=== PATIENT | female | born 1960 | race Caucasian/White ===

== ENCOUNTER 2018-01-21 06:11 | Day surgery (SDC) | payer BC, SELFPAY ==
[2018-01-21 06:26] VITALS: BP 137/86; PULSE 76; RESP 18; TEMP 36.5; O2SAT 99
[2018-01-21] MEDS: Lactated Ringers 1,000 ML 80 ML IV (06:58)
[2018-01-21] MEDS: Lidocaine 1% Pres-Free 5 ML VIAL (07:45)
[2018-01-21] MEDS: Dexamethasone 4 MG/ML VIAL (08:01)
--- NOTE | 2018-01-21 08:38 | W.PM.DSUDISC ---
Discharge Plan Disposition Patient Disposition: HOME Condition: Good Discharge Details Attending Provider: Bulmaro Haney Primary Care Provider: Jazz Horner Home Meds and New Rx's Prescriptions: New hydrocodone-acetaminophen [[place]] 5-325 mg tablet 1 tab PO Q6H PRN (Reason: pain) Qty: 7 RF: 0 ibuprofen 600 mg tablet 600 mg PO QID PRN (Reason: pain and inflamation) Qty: 30 RF: 0 No Action magnesium 250 MG tablet 250 mg PO DAILY RF: 0 multivit with min-folic acid [Women's Multivitamin Gummies] 200 MCG tablet,chewable 2 tab PO DAILY RF: 0 lisinopril 20 MG tablet 20 mg PO DAILY Qty: 90 RF: 4 diclofenac sodium 100 GM gel 2 - 4 gm Topical QID PRNQty: 1 RF: 2 omega-3 fatty acids [Fish Oil] 300 MG capsule 300 mg PO DAILY PRNRF: 0 Discharge Instructions Stand Alone Forms: Judah Instructions-DSU Discharge Orders Discharge Orders: Discharge Order (Routine); Ordered 01/21/18 Ordered By: Bulmaro Haney DS: Diagnosis Discharge Diagnosis (1) Plantar fasciitis of left foot: Status: Acute
[2018-01-21 08:50] VITALS: BP 116/81; PULSE 71; RESP 16; O2SAT 99
--- NOTE | 2018-01-21 10:00 | ROE_ITS ---
REPORT OF OPERATIVE PROCEDURE DATE OF PROCEDURE January 21, 2018 PREOPERATIVE DIAGNOSES Recalcitrant left plantar fasciitis. POSTOPERATIVE DIAGNOSES Recalcitrant left plantar fasciitis. PROCEDURE Endoscopic plantar fasciotomy, left foot. SURGEON Bulmaro Haney DPM. ANESTHESIA Monitored Anesthesia Care. Also utilizing 20 cc of 50:50 mixture 0.5% ropivacaine and 1% lidocaine plain. ANESTHESIA PROVIDER Aditya Carlisle CRNA OPERATIVE INDICATIONS This 57-year-old female with persistent pain in spite of aggressive palliative treatments left planta r fascitis for endoscopic plantar fasciotomy in an effort to reduce pain and improve function. She un derstands the risks and complications of surgery pertaining to pain, scarring, infection, wound dehis cence, persistent plantar fascial discomfort, lateral column pain, the potential for revisional proce dures. Informed consent has been obtained. No promises made to the final outcome of the surgery. DESCRIPTION OF REPORT OF OPERATION Aliza was brought to the Operative Suite, placed in the supine position, where the left foot was preppe d and draped in the usual sterile podiatric fashion. Anesthesia being obtained, the left foot was exs anguinated, and a well-padded ankle tourniquet inflated to 150 mmHg. Attention was directed to the me dial aspect of the left heel where a 1-cm incision was made approximately 50 mm in from the posterior calcaneus edge and approximately 25 mm up from the plantar surface of the foot. A curved hemostat wa s then used to identify the medial edge of the plantar fascia and a tunnel was created superficial to the fascia. The obturator and cannula were then inserted into the wound. It was pushed through plan tarly and exited laterally without difficulty. The scope was inserted laterally and the plantar fasci a was readily identified. A picture was obtained at this level. Utilizing the hook blade, the medial third of the plantar fascia was released without difficulty. A picture was also obtained at this poi nt revealing the exposed muscle belly under the fascia. The hook blade was then used to tease any add itional fibers. The scope was removed as was the blade and we entered from the medial side going late rally to inspect and no additional areas of uncut fascia identified. The scope was removed. Irrigatio n was performed in the usual fashion. Instrumentation was removed from the surgical incision. The la teral incision was closed with a single horizontal mattress suture #4-0 Nylon. The medial incision wa s closed by 1 horizontal mattress suture, 1 simple suture of #4-0 Nylon. 4 mg Dexamethasone phosphate was infused deeply within the wound. Fluff gauze compression dressings were applied. The tourniquet was released at 18 minutes with vascularity returning immediately to all toes. Aliza left the Operating Room with vital signs stable, vascular status intact. Sharp and sponge counts were correct. Note - Timeout had been conducted prior to incision and all in attendance were agreeable to patient, allergies, and procedure.
== END 2018-01-21 09:20 | disposition home or self-care (01) ==
PROVIDERS: PCP Family Medicine; Visit Provider Podiatrist
PROC: (CPT 29893; principal; 2018-01-21 07:30)
DX: M72.2 Plantar fascial fibromatosis (principal); I10 Essential (primary) hypertension
CPT/HCPCS: 29893; J0690; J1100; J2405

== ENCOUNTER 2018-04-20 12:16 | Emergency (ER) | payer BC, SELFPAY ==
--- NOTE | 2018-04-20 12:20 | W.ED.GENAD ---
Discharge Plan Disposition Patient Disposition: HOME Condition: Stable Discharge Details Chief Complaint: EyeProblem Clinical Impression: Contusion of skin Primary Care Provider: Naz Kelly ED Provider: Carlos Castillo Home Meds and New Rx's Prescriptions: Continued sertraline 100 mg tablet 100 mg PO DAILY Qty: 90 RF: 4 Discharge Instructions Additional Instructions: I suspect your area of discoloration is from coughing which led to a small area of bleeding If you have no improvement within a week see your e commerce merchant of primary care provider if you have severe eye pain, vision changes or fevers return to the emergency department Medical Decision Making 58 yo female comes in with bruising discoloration under the right eye since last night with no known trauma. Denies vision changes, pain, fevers. On exam she has skin contusion of the nasal inferior portion of the right periorbital region. There is no fluctuance warmth or tenderness on exam. Has 20/20 vision with glasses, PERRL, eomi without pain and normal conjunctiva. Pt has had a cough recently and I suspect she may have had a small area of cappilary hemorrhage leading to the bruising. No findings to suggest infection or cellulitis. She has no other bruising or other systemic symptoms to suggest bleeding disorder. No pain or trauma so doubt fx/dislocation and do not feel imaging indicated. Advised this should resolve in a week or so but if not she should f/u with pcp/e commerce merchant and return if worsening Differential Diagnosis sebaceous cyst, hordeolum, capillary hemorrhage HPI General Mode of arrival: ambulatory. Date/Time Provider Initiated Documentation: 04/20/18 12:18. Limitations to Documentation: no limitations. Information obtained by: patient. History of Present Illness 58 year old F presents to the emergency department with the chief complaint of bruising under right eye, described as mild, with intensity rated at 2. Patient started experiencing this day(s) (1) and it has been constant. No relieving factors improve symptom(s), No exacerbating factors reported . Patient did receive the following treatments prior to arrival, none Related Data Home Medications Medication Instructions Recorded Confirmed sertraline 100 mg tablet 100 mg PO DAILY #90 tab 02/13/18 04/20/18 Previous Rx's Medication Instructions Recorded sertraline 100 mg tablet 100 mg PO DAILY #90 tab 02/13/18 Allergies Allergy/AdvReac Type Severity Reaction Status Date / Time No Known Allergies Allergy Verified 04/20/18 12:25 Review of Systems Review of Systems All systems reviewed & are unremarkable except as noted in HPI and below Constitutional Denies chills, Denies fever(s) and Denies weakness Eyes Denies loss of vision ENT Denies change in voice Cardiovascular Denies chest pain and Denies dyspnea Respiratory Denies dyspnea Gastrointestinal Denies abdominal pain, Denies nausea and Denies vomiting Musculoskeletal Denies joint swelling Neurologic Denies loss of vision and Denies weakness [facility] Medical History Plantar fasciitis of left foot (Acute) Surgical History section Ligation of fallopian tube Family History Mother Neoplasm Father Neoplasm Sister No problems noted. Sister No problems noted. Brother No problems noted. Brother No problems noted. Daughter No problems noted. Daughter No problems noted. Social History Smoking/Tobacco Use Status: Never Exam Const General: no acute distress Orientation: alert HENMT Head: normal to inspection Ears: external ears normal General nose exam: external nose normal Mouth: moist mucous membranes Eyes General: appearance normal, both eyes and all related structures Neck Neck: normal visual inspection Resp Effort & Inspection: normal respiratory effort and able to speak in complete sentences Cardio Rate: regular rate Skin General skin exam: no rashes or lesions noted Neuro General: alert and oriented x3 Extrem General: normal to inspection Psych Mental Status: mental status grossly normal
[2018-04-20 12:21] VITALS: BP 140/80; PULSE 88; RESP 16; TEMP 37; O2SAT 96
--- NOTE | 2018-04-20 12:36 | ED.GENADUL_ITS ---
Discharge Plan Disposition Patient Disposition: HOME Condition: Stable Discharge Details Chief Complaint: EyeProblem Clinical Impression: Contusion of skin Primary Care Provider: Naz Kelly ED Provider: Carlos Castillo Home Meds and New Rx's Prescriptions: Continued sertraline 100 mg tablet 100 mg PO DAILY Qty: 90 RF: 4 Discharge Instructions Additional Instructions: I suspect your area of discoloration is from coughing which led to a small area of bleeding If you have no improvement within a week see your casino attendant of primary care provider if you have severe eye pain, vision changes or fevers return to the emergency department Medical Decision Making 58 yo female comes in with bruising discoloration under the right eye since last night with no known trauma. Denies vision changes, pain, fevers. On exam she has skin contusion of the nasal inferior portion of the right periorbital region. There is no fluctuance warmth or tenderness on exam. Has 20/20 vision with glasses, PERRL, eomi without pain and normal conjunctiva. Pt has had a cough recently and I suspect she may have had a small area of cappilary hemorrhage leading to the bruising. No findings to suggest infection or cellulitis. She has no other bruising or other systemic symptoms to suggest bleeding disorder. No pain or trauma so doubt fx/dislocation and do not feel imaging indicated. Advised this should resolve in a week or so but if not she should f/u with pcp/casino attendant and return if worsening Differential Diagnosis sebaceous cyst, hordeolum, capillary hemorrhage HPI General Mode of arrival: ambulatory . Date/Time Provider Initiated Documentation: 04/20/18 12:18 . Limitations to Documentation: no limitations . Information obtained by: patient . History of Present Illness 58 year old F presents to the emergency department with the chief complaint of bruising under right eye, described as mild, with intensity rated at 2. Patient started experiencing this day(s) (1) and it has been constant. No relieving factors improve symptom(s), No exacerbating factors reported . Patient did receive the following treatments prior to arrival, none Related Data Home Medications Medication Instructions Recorded Confirmed sertraline 100 mg tablet 100 mg PO DAILY #90 tab 02/13/18 04/20/18 Previous Rx's Medication Instructions Recorded sertraline 100 mg tablet 100 mg PO DAILY #90 tab 02/13/18 Allergies Allergy/AdvReac Type Severity Reaction Status Date / Time No Known Allergies Allergy Verified 04/20/18 12:25 Review of Systems Review of Systems All systems reviewed & are unremarkable except as noted in HPI and below Constitutional Denies chills, Denies fever(s) and Denies weakness Eyes Denies loss of vision ENT Denies change in voice Cardiovascular Denies chest pain and Denies dyspnea Respiratory Denies dyspnea Gastrointestinal Denies abdominal pain, Denies nausea and Denies vomiting Musculoskeletal Denies joint swelling Neurologic Denies loss of vision and Denies weakness [facility] Medical History Plantar fasciitis of left foot (Acute) Surgical History section Ligation of fallopian tube Family History Mother Neoplasm Father Neoplasm Sister No problems noted. Sister No problems noted. Brother No problems noted. Brother No problems noted. Daughter No problems noted. Daughter No problems noted. Social History Smoking/Tobacco Use Status: Never Exam Const General: no acute distress Orientation: alert HENMT Head: normal to inspection Ears: external ears normal General nose exam: external nose normal Mouth: moist mucous membranes Eyes General: appearance normal, both eyes and all related structures Neck Neck: normal visual inspection Resp Effort & Inspection: normal respiratory effort and able to speak in complete sentences Cardio Rate: regular rate Skin General skin exam: no rashes or lesions noted Neuro General: alert and oriented x3 Extrem General: normal to inspection Psych Mental Status: mental status grossly normal
== END 2018-04-20 12:44 | disposition home or self-care (01) ==
PROVIDERS: Emergency Provider Emergency Medicine; PCP Nurse Practitioner Family
DX: S00.83XA Contusion of other part of head, initial encounter (principal); X58.XXXA Exposure to other specified factors, initial encounter
CPT/HCPCS: 99282

== ENCOUNTER 2018-08-02 15:22 | Emergency (ER) | payer BC, SELFPAY ==
--- NOTE | 2018-08-02 15:29 | DI.CT_ITS ---
SYMPTOM/DIAGNOSIS: FELL, HIT HEAD, LACERATION CRANIAL CT (WITHOUT CONTRAST): A noncontrast cranial CT was performed. The ventricular system is normal in appearance. There is no evidence of an intracranial mass lesion. There is no evidence of a subdural or epidural hematoma. No focal areas of decreased attenuation are seen. CONCLUSION: Normal noncontrast Cranial CT. CERVICAL SPINE CT: CT examination of the cervical spine was performed utilizing multi slice acquisition and multi planar reconstruction. Images obtained through the lung apices are unremarkable. Tracheal laryngeal structures appear intact. No cervical mass or adenopathy is seen. No cervical fracture or dislocation. There are degenerative changes of the cervical spine, most prominent at C 5-6 and C 6-7 with loss of disc space height and prominent endplate hypertrophy at these levels. CONCLUSION: No evidence of acute cervical injury.
[2018-08-02 15:33] VITALS: BP 168/96; PULSE 107; RESP 18; TEMP 36.8; O2SAT 95
[2018-08-02] MEDS: Lidocaine/Epinephri/Tetracaine Topical Gel 3 ML (15:35)
--- NOTE | 2018-08-02 15:42 | ED.GENADUL_ITS ---
Discharge Plan Disposition Patient Disposition: HOME Condition: Good Discharge Details Chief Complaint: HeadInjury Clinical Impression: Concussion, Laceration of scalp Primary Care Provider: Naz Kelly ED Provider: Jose A Oakes Home Meds and New Rx's Prescriptions: No Action sertraline 100 mg tablet 100 mg PO DAILY Qty: 90 RF: 4 Discharge Instructions Instructions: Concussion (ED), Care For Your Absorbable Stitches (ED) Additional Instructions: Please leave the dressing on for 24 hours, then you may remove and begin cleaning the wound at least twice a day with soap and water. Continue to apply antibiotic ointment daily. Do not directly soak the area. Watch for any signs of infection and return if any increasing redness, swelling, pain, drainage. If you notice any worsening of your symptoms, or any new symptoms such as vomiting, diarrhea, fever, chills, shortness of breath, chest pain, numbness, weakness, or fainting , please return immediately to the emergency department for reevaluation. Please follow up with your primary care provider as soon as possible for reassessment and reevaluation. As always, it was a pleasure participating in your medical care today. Referrals: Naz Kelly, GARETH [Primary Care Provider] - Discharge Data Discharge Date/Time-TO BE ENTERED AT DEPARTURE: 08/02/18 17:28 Medical Decision Making This is a pleasant 58-year-old female with no significant past medical history who presents today for evaluation of fall. The patient was close lined at the ankles by her dog's leash and hit her head. She had no loss of consciousness. She is not on blood thinners. Tetanus was updated in 2017. Exam demonstrates normal neurologic exam, no evidence of significant trauma aside for a small 5 mm laceration on the superior aspect of her scalp. CT scan was ordered of the head neck and demonstrates no acute process, fracture, or foreign bodies. The area was cleaned and irrigated with copious amounts of chlorhexidine and saline as well as high-powered irrigation. 2 small simple interrupted 5-0 chromic gut sutures were placed into the scalp. The patient tolerated this well. I feel that the patient signs and symptoms are consistent with mild concussion, with no radiographic evidence per radiology for any acute intracranial process I feel she can be safely discharged home with close follow- up. I have extensively reviewed the treatment plan and discharge instructions with the patient. I have addressed all patient concerns at this time. The patient was made aware of what symptoms to monitor for that would warrant a return to the emergency department. Discussed the plan with the patient, they demonstrate verbal understanding and agreement with our assessment and plan at this time. CLINICAL HISTORY: 58 years old, female; Signs and symptoms; Other: Fall, hit head and cut it. ; Additional info: Fall, hit head and cut it. Posterior cut TECHNIQUE: Imaging protocol: Axial computed tomography images of the head/brain without contrast. Coronal and sagittal reformatted images were created and reviewed. Radiation optimization: All CT scans at this facility use at least one of these dose optimization techniques: automated exposure control; mA and/or kV adjustment per patient size (includes targeted exams where dose is matched to clinical indication); or iterative reconstruction. COMPARISON: No relevant prior studies available. FINDINGS: No evidence of hemorrhage. No mass effect. No acute intracranial abnormality. No evidence of acute fracture. IMPRESSION: No evidence of acute intracranial process. EXAM: CT Cervical Spine Without Contrast EXAM DATE/TIME: 08/02/2018 3:30 PM CLINICAL HISTORY: 58 years old, female; Signs and symptoms; Other: Fall, hit head and cut it. ; Additional info: Fall, hit head and cut it. Posterior cut TECHNIQUE: Imaging protocol: Axial computed tomography images of the cervical spine without contrast. Coronal and sagittal reformatted images were created and reviewed. Radiation optimization: All CT scans at this facility use at least one of these dose optimization techniques: automated exposure control; mA and/or kV adjustment per patient size (includes targeted exams where dose is matched to clinical indication); or iterative reconstruction. COMPARISON: No relevant prior studies available. FINDINGS: Reversal of the normal cervical lordosis most likely positional. Degenerative disc disease at C5-6 and C6-7. No focal subluxation. No acute fracture. Paraspinal soft tissues unremarkable. Lung apices within normal limits. IMPRESSION: No evidence of acute bony abnormality. Dictated and Authenticated by: Bryson Alvarenga MD. Ordering:CHANDRIKA Naranjo MD HPI General Date/Time Provider Initiated Documentation: 08/02/18 15:22 . HPI Narrative: This is a 58-year-old female who presents today for evaluation of tramadol. Patient states that she was out with her dog when the dog ran behind her, she was close lined at the ankles by the dog's leash and she fell and hit the top of her head on the hard jessica ground. She had no loss of consciousness, she recalls the entire event. She is on no blood thinners. Tetanus is updated in 2017. She denies any vision changes, numbness tingling or weakness or neck pain. She does admit to mild headache. She has no other complaints or modifying factors. She does admit to a history of concussions in the past. She denies any recent surgeries, IV or illicit drug use or pertinent family history Related Data Home Medications Medication Instructions Recorded Confirmed sertraline 100 mg tablet 100 mg PO DAILY #90 tab 02/13/18 04/20/18 Previous Rx's Medication Instructions Recorded sertraline 100 mg tablet 100 mg PO DAILY #90 tab 02/13/18 Allergies Allergy/AdvReac Type Severity Reaction Status Date / Time No Known Allergies Allergy Verified 08/02/18 15:38 General Stated Complaint: HeadInjury KASH: 3 Review of Systems Review of Systems All systems reviewed & are unremarkable except as noted in HPI and below PFSH Family History Mother Neoplasm Father Neoplasm Sister No problems noted. Sister No problems noted. Brother No problems noted. Brother No problems noted. Daughter No problems noted. Daughter No problems noted. Social History Smoking/Tobacco Use Status: Never Drug use: Never Do you feel safe in your relationship?: Yes Exam Narrative Exam Narrative: 1.Const: Well-nourished, Well-developed, appearing stated age 2.Eyes: PERRL, no conjunctival injection, and symmetrical lids. 3.ENT: Atraumatic external nose and ears. Moist MM. Neck: Symmetric, trachea midline, No thyromegaly. There is no evidence of raccoon eyes, vera sign, CSF rhinorrhea, mastoid tenderness, cranial crepitus, hemotympanum, exophthalmos, or hyphema. Patient demonstrates intact dentition with no signs of tooth avulsion or fracture, no signs of jaw deformity, no evidence of a LeFort's fracture, with an intact palate, nose and orbital region. There is no evidence of a nasal septal hematoma. No proptosis. Jaw closes symmetrically. Airway is clear. 4.CVS: +S1/S2, No murmurs or gallops. Peripheral pulses 2+ and equal in all extremities. Brisk capillary refill in all extremities. 5.RESP: Unlabored respiratory effort. Clear to auscultation bilaterally. No wheezes rales or rhonchi 6.GI: Soft, Nontender/Nondistended, No hepatosplenomegaly. No guarding or rebound. 7.MSK: Normocephalic/Atraumatic, Extremities w/o deformity or ttp No cyanosis or clubbing, Normal movement of all extremities. No midline tenderness to palpation over the CTLS spine. Normal ROM in flexion, extension, side bend, and rotation. Patient has +5 out of 5 strength in the lower extremities in dorsiflexion and plantarflexion, knee flexion and extension, hip flexion and extension. There is +2 over 2 dorsalis pedis pulses bilaterally. There is normal sensation to the skin with light touch at the foot, knee, and hip. Normal saddle sensation. Good sensation over the deep sural nerve area bilaterally. Rectal exam deferred. Reflexes are +2 over 4 in the patellar reflex bilaterally. +5 out of 5 strength in the medial, ulnar, radial nerve distribution bilaterally in the hands as well as intact light touch sensation to these dermatomes on the hands 8.Skin: Warm, Dry. Small 5 mm linear laceration noted over the superior scalp. No active bleeding. No evidence of calvarial involvement 9.Neuro: grading supervisor II-XII grossly intact. Sensation grossly intact, no focal neurologic deficits. All 6 cardinal planes of vision are fully intact. No evidence of rotatory or vertical nystagmus. The patient demonstrated a normal [id number], good dexterity. There was no evidence of dysdiadochokinesia. Patient was able to ambulate without difficulty. There was no wide-based gait. Romberg, and boav-re-caev are both normal on testing. Sensation was intact bilaterally as well as muscle strength bilaterally for all extremities. Patient was able to verbalize butter cup with no slurring, or miss pronunciation. 10.Psych: (AAO) x3. Appropriate mood and affect Course Vital Signs Temperature 36.8 C 08/02/18 15:33 Pulse 107 H 08/02/18 15:33 Respiratory Rate 18 08/02/18 15:33 Blood Pressure 168/96 H 08/02/18 15:33 Pulse Oximetry 95 08/02/18 15:33 Temperature 36.8 C 08/02/18 15:33 Temperature Source Temporal Artery Scan 08/02/18 15:33 Pulse 107 H 08/02/18 15:33 Respiratory Rate 18 08/02/18 15:33 Respiratory Effort 08/02/18 15:38 Blood Pressure 168/96 H 08/02/18 15:33 Pulse Oximetry 95 08/02/18 15:33 Oxygen Delivery Method Room Air 08/02/18 15:33 Oxygen Flow Rate 0 08/02/18 15:33
--- NOTE | 2018-08-02 16:56 | DI.VRAD_ITS ---
EXAM: CT Head Without Contrast EXAM DATE/TIME: 08/02/2018 3:30 PM CLINICAL HISTORY: 58 years old, female; Signs and symptoms; Other: Fall, hit head and cut it. ; Additional info: Fall, hit head and cut it. Posterior cut TECHNIQUE: Imaging protocol: Axial computed tomography images of the head/brain without contrast. Coronal and sagittal reformatted images were created and reviewed. Radiation optimization: All CT scans at this facility use at least one of these dose optimization techniques: automated exposure control; mA and/or kV adjustment per patient size (includes targeted exams where dose is matched to clinical indication); or iterative reconstruction. COMPARISON: No relevant prior studies available. FINDINGS: No evidence of hemorrhage. No mass effect. No acute intracranial abnormality. No evidence of acute fracture. IMPRESSION: No evidence of acute intracranial process. EXAM: CT Cervical Spine Without Contrast EXAM DATE/TIME: 08/02/2018 3:30 PM CLINICAL HISTORY: 58 years old, female; Signs and symptoms; Other: Fall, hit head and cut it. ; Additional info: Fall, hit head and cut it. Posterior cut TECHNIQUE: Imaging protocol: Axial computed tomography images of the cervical spine without contrast. Coronal and sagittal reformatted images were created and reviewed. Radiation optimization: All CT scans at this facility use at least one of these dose optimization techniques: automated exposure control; mA and/or kV adjustment per patient size (includes targeted exams where dose is matched to clinical indication); or iterative reconstruction. COMPARISON: No relevant prior studies available. FINDINGS: Reversal of the normal cervical lordosis most likely positional. Degenerative disc disease at C5-6 and C6-7. No focal subluxation. No acute fracture. Paraspinal soft tissues unremarkable. Lung apices within normal limits. IMPRESSION: No evidence of acute bony abnormality. Dictated and Authenticated by: Bryson Alvarenga MD. Ordering:CHANDRIKA Naranjo MD
[2018-08-02 17:28] VITALS: BP 171/105; PULSE 92; RESP 18; O2SAT 100
== END 2018-08-02 17:28 | disposition home or self-care (01) ==
PROVIDERS: Emergency Provider Student in an Organized Health Care Education/Training Program; PCP Nurse Practitioner Family
DX: S06.0X0A Concussion without loss of consciousness, initial encounter (principal); S01.01XA Laceration without foreign body of scalp, initial encounter; Y93.K1 Activity, walking an animal
CPT/HCPCS: 12001; 70450; 72125

== ENCOUNTER 2018-09-30 00:39 | Outpatient (CLI) | payer BC, SELFPAY ==
--- NOTE | 2018-09-30 08:30 | DI.MAMMO_ITS ---
SYMPTOM/DIAGNOSIS: SCREENING, Z12.31 MAMMOGRAMS: Mammograms were interpreted according to the usual protocol including computer analysis with CAD system, tomosynthesis and C view imaging. The breast tissue is of moderate radiodensity. There is no evidence of a mass. No suspicious calcifications are identified and there has been no significant interval change when compared with prior images. IMPRESSION: No evidence of malignancy. Category 1. Yearly screening mammography is recommended. Breast density, Category B. SA ASSESSMENT OF FINDINGS: Negative. Category 1. Patient will receive a letter notifying them of these results. BI-RADS category B. There are scattered areas of fibroglandular density.
[2018-09-30 09:27] LABS: Hemoglobin A1C 5.6 % (4.5-6.2)
[2018-09-30 10:12] LABS: Anion Gap 9.2 mmol/L (3-11); BUN 20 mg/dL (7-18); CO2 28.8 mmol/L (21.0-32.0); Calcium 8.8 mg/dL (8.5-10.1); Calculated LDL 151 mg/dL; Chloride 106 mmol/L (98-107); Cholesterol 230 mg/dL (50-200); Glucose 99 mg/dL (70-100); HDL Cholesterol 62 mg/dL (40-60); Potassium 4.3 mmol/L (3.5-5.1); Sodium 144 mmol/L (136-145); Triglyceride 88 mg/dL (30-150)
[2018-09-30 10:41] LABS: FREE T4 0.81 ng/dL (0.76-1.46)
== END 2018-09-30 00:59 ==
PROVIDERS: PCP Nurse Practitioner Family; Visit Provider Nurse Practitioner Family
DX: Z12.31 Encounter for screening mammogram for malignant neoplasm of breast (principal); E78.5 Hyperlipidemia, unspecified
CPT/HCPCS: 36415; 77063; 77067; 80048; 80061; 83721; 83036; 84439; 84443

== ENCOUNTER 2019-10-14 02:28 | Outpatient (CLI) | payer BC, SELFPAY ==
[2019-10-14 08:39] LABS: Anion Gap 5.3 mmol/L (3-11); BUN 22 mg/dL (7-18); CO2 31.7 mmol/L (21.0-32.0); CREATININE 0.92 mg/dL (0.55-1.02); Calculated LDL 195 mg/dL (<100); Chloride 103 mmol/L (98-107); Cholesterol 278 mg/dL (<200); Glucose 101 mg/dL (74-106); HDL Cholesterol 50 mg/dL (40-60); Potassium 4.5 mmol/L (3.5-5.1); Sodium 140 mmol/L (136-145); Triglyceride 168 mg/dL (<150)
== END 2019-10-14 02:48 ==
PROVIDERS: PCP Nurse Practitioner Family; Visit Provider Nurse Practitioner Family
DX: E78.5 Hyperlipidemia, unspecified (principal)
CPT/HCPCS: 36415; 80048; 80061

== ENCOUNTER 2019-11-04 01:19 | Outpatient (CLI) | payer BC, SELFPAY ==
--- NOTE | 2019-11-04 08:20 | DI.MAMMO_ITS ---
EXAM: MAMMO SCREENING CLINICAL HISTORY: screening,Z12.39 TECHNIQUE: Mammograms were interpreted according to the usual protocol including computer analysis w [employer] CAD system, tomosynthesis and C-view imaging. COMPARISON: FINDINGS: The breasts are of moderate density with fairly symmetrical distribution of fibroglandular tissue. N o dominant mass or clumped microcalcification is identified in either breast. The current examinatio n is compared with prior studies including September 2018 and there has been no gross interval change in a ppearance in comparison with the prior studies. IMPRESSION: No specific evidence of malignancy at this time. Routine screening examinations are suggested at yea rly intervals in this age group according to the ACS ACR guidelines. BI-RADS Category 1 - Negative Breast Density - Category B - Scattered areas of fibroglandular density:
== END 2019-11-04 01:39 ==
PROVIDERS: PCP Nurse Practitioner Family; Visit Provider Nurse Practitioner Family
DX: Z12.31 Encounter for screening mammogram for malignant neoplasm of breast (principal); R92.2 Inconclusive mammogram
CPT/HCPCS: 77063; 77067

== ENCOUNTER 2020-10-30 06:49 | Observation (INO) | payer BC, SELFPAY ==
[2020-10-30] VITALS (16 sets, daily range): BP systolic 145–181; BP diastolic 81–99; PULSE 64–85; RESP 10–20; TEMP 36.3–36.6; O2SAT 96–99
--- NOTE | 2020-10-30 | ETT_ITS ---
APPROVED REPORT Exam: Exercise Treadmill Patient Location: In-Patient Room/Bed: [facility] Stress Nurse: Senia De La Torre RN Ordering Provider:MAYO FOSTER, Contact Number: BMI: 32.43 Baseline Rhythm: Sinus Rhythm Comment: T wave inversion lead III, w/ PVCs and PACs Indications: Shortness of breath and Chest pain. Medical History Medical History: HLD, Obesity, Depression Cardiac Medications: None. Allergies: No known drug allergies Cardiac Risk Factors: HTN, Hyperlipidemia Previous Cardiac Procedures: None. Pretest Chest Pain Characteristics: None. Last episode of chest pain this morning, relieved w/ nitro. Exercise History: Physically active Physical Disabilities: None. Lung Sounds: Clear to auscultation Heart Sounds: Regular Stress Test Details Test: Exercise stress testing was performed using a Cornelio protocol. Rest Stress HR Resting HR Supine: 78 bpm Max Heart Rate (APMHR): 162 bpm Resting HR Standin bpm Target HR (85% APMHR): 137 bpm Max HR Achieved: 179 bpm % of APMHR: 110 Recovery HR: 98 bpm HR response to stress: Accelerated HR response to stress BP Resting BP Supine: 140/96 mmHg Resting BP Standin/86 mmHg Max BP: 166/80 mmHg Recovery BP: 148/86 mmHg BP response to stress: Normal blood pressure response to stress. ECG Resting ECG: Sinus Rhythm Ectopy: PVCs, PACs Comment: T wave inversion lead III Stress ECG: Sinus Tachycardia ST Change: No significant ST segment changes noted Arrhythmia: PVCs. Recovery ECG: Sinus Tachycardia Recovery Arrhythmia: PVCs, occ. PAC Clinical Reason for Termination: Fatigue Stress Symptoms: General Fatigue Exercise duration: 7 min24 sec Highest Stage Reached: Stage 3: 3.4 mph at 14% grade. Exercise capacity: 9.2 METs Deng Treadmill Score: 7 Rate Pressure Product: [id number] Stress ECG Conclusion 1. The patient exercised for 7 minutes (9 METS). Exercise was stopped due to fatigue. 2. The patient no symptoms suggestive of ischemia. 3. The patient's blood pressure and heart rate augmented appropriately. 4. There is no evidence of ischemia on ECG portion of the exam. Deng Treadmill Score is 7 which is Low risk. Stress Test Summary STAGE Time (mins) Speed (mph) Grade (%) HR BP SYMPTOMS METS Supine 78 140/86 SpO2 97% Standing 85 138/86 1 3 1.7 10 154 148/90 SpO2 95% 4.6 2 6 2.5 12 174 156/84 7 1 min recovery 156 166/80 SpO2 97% 3 min recovery 110 150/84 6 min recovery 103 148/86
--- NOTE | 2020-10-30 06:45 | RT.EKG_ITS ---
APPROVED REPORT Exam: Resting ECG Reason for Exam: SOB Patient Location: E HR:71 bpm ECG Measurements Heart Rate 71 AXIS SC 162 P 46 QRSd 74 QRS 43 QT 389 T 16 QTc 424 Conclusion Sinus rhythm...normal P axis, V-rate 60- 99 Physician: no stemi,, lead 3 t wave inversion. no other abnormalities
--- NOTE | 2020-10-30 07:20 | ED.GENADUL_ITS ---
Discharge Plan Disposition Patient Disposition: [facility] INPATIENT Condition: Stable Discharge Details Clinical Impression: Chest pain Admit Date/Time: 10/30/20 10:58 Admit Provider: Sher Gordon Attending Provider: Sher Gordon Primary Care Provider: Naz Kelly ED Provider: Olivia Swenson Discharge Data Discharge Date/Time-TO BE ENTERED AT DEPARTURE: 10/30/20 11:50 Medical Decision Making <Jose A Oakes DO - Last Filed: 10/30/20 07:26> This is a 60-year-old female with a past medical history of high cholesterol, depressive disorder, obesity, who presented she for evaluation of chest pain and chest tightness. Patient states that when she woke up this morning she felt like there was an elephant sitting on her chest. She also felt mildly short of breath. She denies any worsening of her symptoms with ambulation, or movement. She denies any pleuritic chest pain. Denies PE risk factors such as recent long car rides, immobilization, recent surgery, prior history of DVT or PE, family history of PE or DVT, morbid obesity, exogenous estrogen and smoking, hemoptysis, history of cancer. She denies any history of cardiac disease. She denies any close family history of cardiac disease. She has never had symptoms like this before. No other complaints at this time. No other modifying factors. Physical exam is unremarkable and reassuring. EKG shows no significant abnormalities. No evidence of STEMI. Heart score is in the borderline low to moderate group. I do feel that the patient requires a cardiac evaluation, we will order a D-dimer for further evaluation of potential PE. Will monitor closely and reassess. Will give nitroglycerin and aspirin to assess for improvement with this. Case will be signed out to my colleague Dr. Kasandra Swenson for further assessment review of labs and imaging. <Olivia Swenson MD - Last Filed: 11/06/20 22:22> Muna Hood is a 60-year-old woman who presented to emergency department chest pain, signed out to me by Dr. Oakes at time of shift change with labs, imaging pending, please see his note for H&P. D-dimer resulted as negative, chest x-ray ordered. Chest x-ray negative. Repeat troponin negative. Patient reports no chest pain whatsoever after receiving nitroglycerin initially. Currently without symptoms. Patient low to moderate HEART score based on my assessment as well as Dr. Oakes's, plan for admission to the hospital for cardiac rule out. Patient discussed with Dr. Gordon, patient mated to medicine service. Clinical impression: Chest pain Disposition: [facility] inpatient Medical Records Medical records reviewed: Yes I reviewed the patient's medical records. Imaging Data Radiologic Study: Attestation: I personally reviewed and interpreted this imaging study as follows: Radiologist's impression: EXAM: XR PORTABLE CHEST AP CLINICAL HISTORY: chest pain. TECHNIQUE: 2D digital imaging was performed. COMPARISON: Prior checks x-ray 04/01/2016 FINDINGS: Heart size is normal. The mediastinum is not widened. Lungs are clear. No infiltrates nor obvious pleural effusions. IMPRESSION: No acute pulmonary findings on this single AP portable view of the chest. Lab Data Lab results reviewed: Yes I reviewed the patient's lab results. Labs: Laboratory Tests Range/Units 10/30/20 10/30/20 10/30/20 07:14 07:14 07:37 WBC (4.4-10.8) 10^3/uL 4.49 RBC (3.93-5.22) 10^6/uL 4.50 Hgb (11.2-15.7) g/dL 13.2 Hct (36.0-46.0) % 40.0 MCV (80-95) fL 88.9 MCH (27.0-33.0) pg 29.3 MCHC (32.0-36.0) % 33.0 RDW (11.7-14.6) % 12.6 Plt Count (130-400) 10^3/uL 199 MPV (8.0-11.0) fL 10.7 Immature Gran % 0.4 Neutrophils % 50.9 Lymphocytes % 35.6 Monocytes % 9.1 Eosinophils % 3.1 Basophils % 0.9 Nucleated RBC % % 0 Absolute Neutrophils (1.2-6.7) 10^3/uL 2.28 Absolute Lymphocytes (1.2-3.4) 10^3/uL 1.60 Absolute Monocytes (0.1-0.8) 10^3/uL 0.41 Absolute Eosinophils (0.0-0.7) 10^3/uL 0.14 Absolute Basophils (0.0-0.2) 10^3/uL 0.04 RBC Morphology Normal D-Dimer (<500) ng/mlFEU 451 Sodium (136-145) mmol/L 142 Potassium (3.5-5.1) mmol/L 4.0 Chloride (98-107) mmol/L 106 Carbon Dioxide (21.0-32.0) mmol/L 30.5 Anion Gap (3-11) mmol/L 5.5 BUN (7-18) mg/dL 20 H Creatinine (0.55-1.02) mg/dL 0.7 Estimated GFR/1.73 m2 (mL/min/1.73m2) >= 60.00 Glucose (74-106) mg/dL 106 Calcium (8.5-10.1) mg/dL 8.9 Magnesium (1.8-2.4) mg/dL 2.0 Total Bilirubin (0.2-1.0) mg/dL 0.4 AST (15-37) U/L 32 ALT (14-59) U/L 61 H Alkaline Phosphatase (46-116) U/L 165 H Troponin I (<0.06) ng/mL < 0.05 NT-Pro-B Natriuret Pep (<300) pg/mL 150 Total Protein (6.4-8.2) g/dL 7.7 Albumin (3.4-5.0) g/dL 4.0 COVID-19 Source Range/Units 10/30/20 10/30/20 10:16 11:08 WBC (4.4-10.8) 10^3/uL RBC (3.93-5.22) 10^6/uL Hgb (11.2-15.7) g/dL Hct (36.0-46.0) % MCV (80-95) fL MCH (27.0-33.0) pg MCHC (32.0-36.0) % RDW (11.7-14.6) % Plt Count (130-400) 10^3/uL MPV (8.0-11.0) fL Immature Gran % Neutrophils % Lymphocytes % Monocytes % Eosinophils % Basophils % Nucleated RBC % % Absolute Neutrophils (1.2-6.7) 10^3/uL Absolute Lymphocytes (1.2-3.4) 10^3/uL Absolute Monocytes (0.1-0.8) 10^3/uL Absolute Eosinophils (0.0-0.7) 10^3/uL Absolute Basophils (0.0-0.2) 10^3/uL RBC Morphology D-Dimer (<500) ng/mlFEU Sodium (136-145) mmol/L Potassium (3.5-5.1) mmol/L Chloride (98-107) mmol/L Carbon Dioxide (21.0-32.0) mmol/L Anion Gap (3-11) mmol/L BUN (7-18) mg/dL Creatinine (0.55-1.02) mg/dL Estimated GFR/1.73 m2 (mL/min/1.73m2) Glucose (74-106) mg/dL Calcium (8.5-10.1) mg/dL Magnesium (1.8-2.4) mg/dL Total Bilirubin (0.2-1.0) mg/dL AST (15-37) U/L ALT (14-59) U/L Alkaline Phosphatase (46-116) U/L Troponin I (<0.06) ng/mL < 0.05 NT-Pro-B Natriuret Pep (<300) pg/mL Total Protein (6.4-8.2) g/dL Albumin (3.4-5.0) g/dL COVID-19 Source Nasal/Nares ECG Data Attestation: I personally reviewed and interpreted this ECG (s) as follows: Interpretation: EKG 10: 26 shows sinus rhythm at 68, normal axis, no major change from prior earlier today, no STEMI, nondiagnostic EKG HPI <Jose A Oakes DO - Last Filed: 10/30/20 07:26> General Date/Time Provider Initiated Documentation: 10/30/20 07:04 . HPI Narrative: This is a 60-year-old female with a past medical history of high cholesterol, depressive disorder, obesity, who presented she for evaluation of chest pain and chest tightness. Patient states that when she woke up this morning she felt like there was an elephant sitting on her chest. She also felt mildly short of breath. She denies any worsening of her symptoms with ambulation, or movement. She denies any pleuritic chest pain. Denies PE risk factors such as recent long car rides, immobilization, recent surgery, prior history of DVT or PE, family history of PE or DVT, morbid obesity, exogenous estrogen and smoking, hemoptysis, history of cancer. She denies any history of cardiac disease. She denies any close family history of cardiac disease. She has never had symptoms like this before. No other complaints at this time. No other modifying factors. Related Data Home Medications Medication Instructions Recorded Confirmed sertraline 100 mg tablet 150 mg PO DAILY #135 tab 08/04/19 10/30/20 calcium-vitamin D3-vitamin K 500 1 tab PO DAILY tab 10/11/19 10/30/20 mg-200 unit-40 mcg tablet multivitamin 2 tab PO DAILY tab 10/11/19 10/30/20 lisinopril 10 mg PO DAILY #30 tab 10/30/20 meloxicam 7.5 mg PO DAILY 10/30/20 10/30/20 omeprazole 20 mg PO DAILY #30 cap 10/30/20 protein supplement 1 packet PO BID 10/30/20 10/30/20 Previous Rx's Medication Instructions Recorded sertraline 100 mg tablet 150 mg PO DAILY #135 tab 08/04/19 lisinopril 10 mg PO DAILY #30 tab 10/30/20 omeprazole 20 mg PO DAILY #30 cap 10/30/20 Allergies Allergy/AdvReac Type Severity Reaction Status Date / Time No Known Allergies Allergy Verified 10/30/20 06:57 General Stated Complaint: Chest Pain KASH: 2 Review of Systems <Jose A Oakes DO - Last Filed: 10/30/20 07:26> All systems reviewed & are unremarkable except as noted in HPI and below PFSH <Jose A Oakes DO - Last Filed: 10/30/20 07:26> Medical History Depressive disorder Hyperlipidemia Obesity Surgical History History of bilateral ligation of fallopian tubes (08/28/88) History of section (03/25/86) 03/25/86, 08/28/88 Status post left foot surgery (01/21/18) Endoscopic plantar fasciotomy of left foot Family History Mother , at 76 of lung cancer Lung cancer Thyroid disease Father , at 69 of brain tumor Brain tumor Sister Thyroid disease Brother Epilepsy Brother No problems noted. Daughter No problems noted. Daughter Epilepsy Maternal Grandfather No problems noted. Maternal Grandmother No problems noted. Paternal Grandfather No problems noted. Paternal Grandmother No problems noted. Social History Smoking/Tobacco Use Status: Never Smoking risk assessment performed?: Yes Drug use: Never Do you feel safe in your relationship?: Yes Female Reproductive History Menstrual Menopause type: natural History History 2 Para 2 Hx # Term Pregnancies Multiple births Hx # Pregnancies Ectopic pregnancies AB induced Hx Number of Living Children 2 AB spontaneous Exam <Jose A Oakes DO - Last Filed: 10/30/20 07:26> Narrative Exam Narrative: 1.Const: Well-nourished, Well-developed, appearing stated age 2.Eyes: PERRL, no conjunctival injection, and symmetrical lids. 3.ENT: Atraumatic external nose and ears. Moist MM. Neck: Symmetric, trachea midline, No thyromegaly. 4.CVS: +S1/S2, No murmurs or gallops. Peripheral pulses 2+ and equal in all extremities. Brisk capillary refill in all extremities. 5.RESP: Unlabored respiratory effort. Clear to auscultation bilaterally. No wheezes rales or rhonchi 6.GI: Soft, Nontender/Nondistended, No hepatosplenomegaly. No guarding or rebound. 7.MSK: Normocephalic/Atraumatic, Extremities w/o deformity or ttp No cyanosis or clubbing, Normal movement of all extremities 8.Skin: Warm, Dry. No rashes or lesions. 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 Sensation grossly intact, no focal neurologic deficits. 10.Psych: (AAO) x3. Appropriate mood and affect Course <Jose A Oakes DO - Last Filed: 10/30/20 07:26> Vital Signs Vital signs: Vital Signs Temperature 36.6 C 10/30/20 06:55 Pulse 75 10/30/20 06:55 Respiratory Rate 18 10/30/20 06:55 Pulse Oximetry 99 10/30/20 06:55 Temperature 36.6 C 10/30/20 06:55 Temperature Source Skin 10/30/20 06:55 Pulse 75 10/30/20 06:55 Respiratory Rate 18 10/30/20 06:55 Respiratory Effort 10/30/20 06:59 Pulse Oximetry 99 10/30/20 06:55 Pain Level 5 10/30/20 06:55 Sign Out <Jose A Oakes DO - Last Filed: 10/30/20 07:26> Sign Out Data: Sign Out Comment: Chest pain, follow-up on imaging, D-dimer, labs. Recommend admission Last updated by Jose A Oakes DO at 10/30/20 08:02
[2020-10-30 07:27] LABS: Abs Immature Grans 0.02 10^3/uL (0.0-0.06); Absolute Basophil Count 0.04 10^3/uL (0.0-0.2); Absolute Eosinophil Count 0.14 10^3/uL (0.0-0.7); Absolute Monocyte Count 0.41 10^3/uL (0.1-0.8); Absolute Neutrophil Count 2.28 10^3/uL (1.2-6.7); Basophils % 0.9; Eosinophils % 3.1; HGB 13.2 g/dL (11.2-15.7); Immature Grans % 0.4; Lymphocytes % 35.6; MCH 29.3 pg (27.0-33.0); MCV 88.9 fL (80-95); MPV 10.7 fL (8.0-11.0); Monocytes % 9.1; Neutrophils % 50.9; Nucleated RBC 0 %; Platelet Count 199 10^3/uL (130-400); RDW 12.6 % (11.7-14.6); RDW-SD 41.1 fL; WBC 4.49 10^3/uL (4.4-10.8)
[2020-10-30] MEDS: nitroGLYcerin 0.4 MG TAB SL (07:29)
[2020-10-30] MEDS: Aspirin 81 MG CHEW 324 MG CH (07:29)
[2020-10-30 07:31] LABS: Diff Comment Diff Reviewed; RBC Morphology Normal
[2020-10-30 07:48] LABS: ALT 61 U/L (14-59); AST 32 U/L (15-37); Alkaline Phosphatase 165 U/L (46-116); Anion Gap 5.5 mmol/L (3-11); BUN 20 mg/dL (7-18); Bilirubin, Total 0.4 mg/dL (0.2-1.0); CO2 30.5 mmol/L (21.0-32.0); CREATININE 0.7 mg/dL (0.55-1.02); Calcium 8.9 mg/dL (8.5-10.1); Chloride 106 mmol/L (98-107); Glucose 106 mg/dL (74-106); NT-proBNP 150 pg/mL (<300); Sodium 142 mmol/L (136-145); Total Protein 7.7 g/dL (6.4-8.2); Troponin I < 0.05 ng/mL (<0.06)
[2020-10-30 08:29] LABS: D-Dimer 451 ng/mlFEU (<500)
--- NOTE | 2020-10-30 09:15 | RT.EKG_ITS ---
APPROVED REPORT Exam: Resting ECG Reason for Exam: chest pain Patient Location: E HR:68 bpm ECG Measurements Heart Rate 68 AXIS NM 186 P 58 QRSd 70 QRS 56 QT 398 T 10 QTc 423 Conclusion Sinus rhythm...normal P axis, V-rate 60- 99 sinus rhythm at 68, normal axis, no major change from prior, no STEMI, nondiagnostic EKG
--- NOTE | 2020-10-30 09:32 | DI.RAD_ITS ---
Exam(s) XR PORTABLE CHEST AP EXAM: XR PORTABLE CHEST AP CLINICAL HISTORY: chest pain. TECHNIQUE: 2D digital imaging was performed. COMPARISON: Prior checks x-ray 04/01/2016 FINDINGS: Heart size is normal. The mediastinum is not widened. Lungs are clear. No infiltrates nor obvious pleural effusions. IMPRESSION: No acute pulmonary findings on this single AP portable view of the chest. DATA REPOSITORY: RADIATION DOSE DELIVERED: All CT scans at this facility use at least one of these dose optimization techniques: automated exposure control; mA and/or kV adjustment per patient size (includes targeted e xams where dose is matched to clinical indication); or iterative reconstruction.
[2020-10-30 10:50] LABS: Troponin I < 0.05 ng/mL (<0.06)
[2020-10-30 11:19] LABS: Source Nasal/Nares
[2020-10-30 12:10] LABS: COVID-19 PCR Negative (Negative)
[2020-10-30] MEDS: Enoxaparin 40 MG/0.4 ML SYR SC (12:57)
--- NOTE | 2020-10-30 16:54 | HPE_ITS ---
Date of service: 10/30/20 Time of Service: 16:54 Assessment and Plan Assessment and plan (1) Chest pain: Start date: 10/30/20 Start time: 17:02 Status: Acute Assessment and plan: Resolved in the ED with nitro EKG with RRR no ST elevation Trops negative Will order ambulatory stress Qualifiers: Chest pain type: other chest pain Qualified Code(s): R07.89 - Other chest pain (2) Elevated BP without diagnosis of hypertension: Start date: 10/30/20 Start time: 17:04 Status: Acute Assessment and plan: Defer to PCP for further management (3) Hyperlipidemia: Start date: 10/30/20 Start time: 17:04 Status: Chronic Assessment and plan: not on a statin at this time above discussed with Dr. Gordon Qualifiers: Hyperlipidemia type: unspecified Qualified Code(s): E78.5 - Hyperlipidemia, unspecified History of Present Illness History of Present Illness Chief Complaint: Chest pain Narrative: 60 y.o female presented to ED with CP after waking up this morning. No SOB, she was able to ambulate. In the ED she received one dose of nitro that took her pain away. EKG was normal with no ST elevation or depression. CXR was normal, labs in the ED unremarkable, She was asked to be admitted to [facility] [address] for further admission. She had a stress test that was negative for ischemia. She has no chest pain. no SOB and no associated symptoms. She denies n/v/d. She can be discharged home. Therefore she will be discharged. Review of Systems All systems reviewed & are unremarkable except as noted in HPI and below PFSH Medical History (Updated 10/30/20 @ 17:04 by Keyla Sandhu NP) Depressive disorder Hyperlipidemia Obesity Surgical History History of bilateral ligation of fallopian tubes (08/28/88) History of section (03/25/86) 03/25/86, 08/28/88 Status post left foot surgery (01/21/18) Endoscopic plantar fasciotomy of left foot Family History Mother , at 76 of lung cancer Lung cancer Thyroid disease Father , at 69 of brain tumor Brain tumor Sister Thyroid disease Brother Epilepsy Brother No problems noted. Daughter No problems noted. Daughter Epilepsy Maternal Grandfather No problems noted. Maternal Grandmother No problems noted. Paternal Grandfather No problems noted. Paternal Grandmother No problems noted. Social History Smoking/Tobacco Use Status: Never Smoking risk assessment performed?: Yes Drug use: Never Do you feel safe in your relationship?: Yes Female Reproductive History Menstrual Menopause type: natural History History 2 Para 2 Hx # Term Pregnancies Multiple births Hx # Pregnancies Ectopic pregnancies AB induced Hx Number of Living Children 2 AB spontaneous Meds Allergies and Home Medications Allergies Allergy/AdvReac Type Severity Reaction Status Date / Time No Known Allergies Allergy Verified 10/30/20 06:57 Home Medications Medication Instructions Recorded Confirmed Type sertraline 100 mg tablet 150 mg PO DAILY #135 tab 08/04/19 10/30/20 Rx calcium-vitamin D3-vitamin K 500 1 tab PO DAILY tab 10/11/19 10/30/20 History mg-200 unit-40 mcg tablet multivitamin 2 tab PO DAILY tab 10/11/19 10/30/20 History meloxicam 7.5 mg PO DAILY 10/30/20 10/30/20 History protein supplement 1 packet PO BID 10/30/20 10/30/20 History Exam Narrative Exam Narrative: Const:AAOx3 Sitting up in bed Eyes: Perrla Resp:LSC Cardio: RRR no eptopic beats GI:BS x 4 Skin: no rashes, lesions Extrem: no clubbing cyanosis Results Labs Result diagrams: 10/30/20 07:14 10/30/20 07:14 Labs: Laboratory Results - last 24 hr 10/30/20 10/30/20 10/30/20 07:14 07:14 07:37 WBC 4.49 RBC 4.50 Hgb 13.2 Hct 40.0 MCV 88.9 MCH 29.3 MCHC 33.0 RDW 12.6 Plt Count 199 MPV 10.7 Immature Gran % 0.4 Neutrophils % 50.9 Lymphocytes % 35.6 Monocytes % 9.1 Eosinophils % 3.1 Basophils % 0.9 Nucleated RBC % 0 Absolute Neutrophils 2.28 Absolute Lymphocytes 1.60 Absolute Monocytes 0.41 Absolute Eosinophils 0.14 Absolute Basophils 0.04 RBC Morphology Normal D-Dimer 451 Sodium 142 Potassium 4.0 Chloride 106 Carbon Dioxide 30.5 Anion Gap 5.5 BUN 20 H Creatinine 0.7 Estimated GFR/1.73 m2 >= 60.00 Glucose 106 Calcium 8.9 Magnesium 2.0 Total Bilirubin 0.4 AST 32 ALT 61 H Alkaline Phosphatase 165 H Troponin I < 0.05 NT-Pro-B Natriuret Pep 150 Total Protein 7.7 Albumin 4.0 COVID-19 Source SARS-CoV-2 (PCR) 10/30/20 10/30/20 10:16 11:08 WBC RBC Hgb Hct MCV MCH MCHC RDW Plt Count MPV Immature Gran % Neutrophils % Lymphocytes % Monocytes % Eosinophils % Basophils % Nucleated RBC % Absolute Neutrophils Absolute Lymphocytes Absolute Monocytes Absolute Eosinophils Absolute Basophils RBC Morphology D-Dimer Sodium Potassium Chloride Carbon Dioxide Anion Gap BUN Creatinine Estimated GFR/1.73 m2 Glucose Calcium Magnesium Total Bilirubin AST ALT Alkaline Phosphatase Troponin I < 0.05 NT-Pro-B Natriuret Pep Total Protein Albumin COVID-19 Source Nasal/Nares SARS-CoV-2 (PCR) Negative Last Vital Signs Temp 36.3 C L 10/30/20 12:10 Pulse 78 10/30/20 12:10 Resp 18 10/30/20 12:10 BP 160/94 H 10/30/20 12:21 Pulse Ox 99 10/30/20 12:10
--- NOTE | 2020-10-30 17:05 | W.PM.DS.N ---
Date of service: 10/30/20 Time of Service: 17:05 DS: Diagnosis Discharge Diagnosis (1) Chest pain: Start date: 10/30/20 Start time: 17:05 Status: Resolved Asessment and Plan: Resolved since receiving nitro. Stress test without any evidence of ischemia Trops negative x 2 Likely esophageal spasm or GERD will place on omeprazole and have follow up with PCP as scheduled. (2) Elevated BP without diagnosis of hypertension: Start date: 10/30/20 Start time: 17:07 Status: Acute Asessment and Plan: High while here not on bp medication will start on low dose lisinopril and follow up with PCP defer for further management (3) Hyperlipidemia: Start date: 10/30/20 Start time: 17:09 Status: Chronic Asessment and Plan: not on any medication at this time. above case discussed with Dr. Gordon Discharge Plan Disposition Patient Disposition: HOME Condition: Stable Discharge Details Reason For Visit: CHEST PAIN Admit Date/Time: 10/30/20 10:58 Admit Provider: Sher Gordon Attending Provider: Sher Gordon [facility] Hospital Course: 60 y.o female presented to ED with CP after waking up this morning. No SOB, she was able to ambulate. In the ED she received one dose of nitro that took her pain away. EKG was normal with no ST elevation or depression. CXR was normal, labs in the ED unremarkable, She was asked to be admitted to [facility] [address] for further admission. She had a stress test that was negative for ischemia. She has no chest pain. no SOB and no associated symptoms. She denies n/v/d. She can be discharged home. Therefore she will be discharged. Will start her on low dose lisinopril due to elevated bp, keep scheduled appt with pcp and will start on omeprazole as well. Home Meds and New Rx's Prescriptions: New lisinopril 10 mg tablet 10 mg PO DAILY Qty: 30 RF: 0 omeprazole 20 mg capsule,delayed release(DR/EC) 20 mg PO DAILY Qty: 30 RF: 0 Continued multivitamin Tablet 2 tab PO DAILY RF: 0 calcium-vitamin D3-vitamin K 500-200-40 mg-unit-mcg tablet 1 tab PO DAILY RF: 0 sertraline 100 mg tablet 150 mg PO DAILY Qty: 135 RF: 4 meloxicam 7.5 mg tablet 7.5 mg PO DAILY RF: 0 protein supplement Packet 1 packet PO BID RF: 0 Discharge Instructions Instructions: Lisinopril (By mouth), Chest Pain (DC), Esophageal Spasm (GEN), DASH Eating Plan (DC), Hypertension (DC) Additional Instructions: Follow up with PCP as scheduled, recommend early as I am starting you on a blood pressure pill. Your blood pressure is elevated. You will be on lisinopril daily take every day, if you start to feel dizzy or lightheaded call your PCP. Take omeprazole daily every morning Activity:: Activity as Tolerated Equipment/Supplies:: No Equipment Needed Diet:: Low Sodium Discharge Orders Discharge Orders: Discharge Order (Routine); Ordered 10/30/20 Ordered By: Keyla Sandhu DS: Summary Time Spent with Patient providing and/or coordinating discharge services: Less than 30 minutes Status at Discharge Functional status at discharge: independent ambulation Overall status at discharge: patient is back to baseline Mental Status: mental status grossly normal Speech and Movement: speech and movement normal Mood: congruent mood Affect: normal affect Exam Narrative Exam Narrative: Const:AAOx3 Sitting up in bed Eyes: Perrla Resp:LSC Cardio: RRR no eptopic beats GI:BS x 4 Skin: no rashes, lesions Extrem: no clubbing cyanosis Psych Mental Status: mental status grossly normal Speech and Movement: speech and movement normal Mood: congruent mood Affect: normal affect DS: Data Vitals/I&O Vitals and I&O: Vital Signs Temperature 36.3 C L 10/30/20 12:10 Temperature Source Temporal Artery Scan 10/30/20 12:10 Pulse 78 10/30/20 12:10 Pulse Rhythm Regular 10/30/20 12:12 Pulse 75 10/30/20 11:00 Respiratory Rate 18 10/30/20 12:10 Respiratory Effort Non-Labored 10/30/20 12:12 Respiratory Depth Normal 10/30/20 12:12 Respiratory Pattern Normal 10/30/20 12:12 Blood Pressure 160/94 H 10/30/20 12:21 Blood Pressure Mean 101 10/30/20 11:00 Pulse Oximetry 99 10/30/20 12:10 Oxygen Delivery Method Room Air 10/30/20 12:10 Oxygen Flow Rate 0 10/30/20 12:10 Pain Level 0 10/30/20 12:10 Intake & Output 10/29/20 10/30/20 10/30/20 23:59 11:59 23:59 Intake Total 250 / 250 Balance 250 / 250 Weight 85.729 kg Intake: Oral 250 / 250 Other: Urine Appearance Clear Data Completed and Pending Completed studies during hospitalization [Text1]: Exam(s) XR PORTABLE CHEST AP EXAM: XR PORTABLE CHEST AP CLINICAL HISTORY: chest pain. TECHNIQUE: 2D digital imaging was performed. COMPARISON: Prior checks x-ray 04/01/2016 FINDINGS: Heart size is normal. The mediastinum is not widened. Lungs are clear. No infiltrates nor obvious pleural effusions. IMPRESSION: No acute pulmonary findings on this single AP portable view of the chest. Stress ECG Conclusion 1. The patient exercised for 7 minutes (9 METS). Exercise was stopped due to fatigue. 2. The patient no symptoms suggestive of ischemia. 3. The patient's blood pressure and heart rate augmented appropriately. 4. There is no evidence of ischemia on ECG portion of the exam. Labs on day of discharge: Labs from last 24 hours 10/30/20 10/30/20 10/30/20 11:08 10:16 07:37 WBC RBC Hgb Hct MCV MCH MCHC RDW Plt Count MPV Immature Gran % Neutrophils % Lymphocytes % Monocytes % Eosinophils % Basophils % Nucleated RBC % Absolute Neutrophils Absolute Lymphocytes Absolute Monocytes Absolute Eosinophils Absolute Basophils RBC Morphology D-Dimer 451 Sodium Potassium Chloride Carbon Dioxide Anion Gap BUN Creatinine Estimated GFR/1.73 m2 Glucose Calcium Magnesium Total Bilirubin AST ALT Alkaline Phosphatase Troponin I < 0.05 NT-Pro-B Natriuret Pep Total Protein Albumin COVID-19 Source Nasal/Nares SARS-CoV-2 (PCR) Negative 10/30/20 10/30/20 07:14 07:14 WBC 4.49 RBC 4.50 Hgb 13.2 Hct 40.0 MCV 88.9 MCH 29.3 MCHC 33.0 RDW 12.6 Plt Count 199 MPV 10.7 Immature Gran % 0.4 Neutrophils % 50.9 Lymphocytes % 35.6 Monocytes % 9.1 Eosinophils % 3.1 Basophils % 0.9 Nucleated RBC % 0 Absolute Neutrophils 2.28 Absolute Lymphocytes 1.60 Absolute Monocytes 0.41 Absolute Eosinophils 0.14 Absolute Basophils 0.04 RBC Morphology Normal D-Dimer Sodium 142 Potassium 4.0 Chloride 106 Carbon Dioxide 30.5 Anion Gap 5.5 BUN 20 H Creatinine 0.7 Estimated GFR/1.73 m2 >= 60.00 Glucose 106 Calcium 8.9 Magnesium 2.0 Total Bilirubin 0.4 AST 32 ALT 61 H Alkaline Phosphatase 165 H Troponin I < 0.05 NT-Pro-B Natriuret Pep 150 Total Protein 7.7 Albumin 4.0 COVID-19 Source SARS-CoV-2 (PCR) PFS Medical History Depressive disorder Hyperlipidemia Obesity Surgical History History of bilateral ligation of fallopian tubes (08/28/88) History of section (03/25/86) 03/25/86, 08/28/88 Status post left foot surgery (01/21/18) Endoscopic plantar fasciotomy of left foot Family History Mother , at 76 of lung cancer Lung cancer Thyroid disease Father , at 69 of brain tumor Brain tumor Sister Thyroid disease Brother Epilepsy Brother No problems noted. Daughter No problems noted. Daughter Epilepsy Maternal Grandfather No problems noted. Maternal Grandmother No problems noted. Paternal Grandfather No problems noted. Paternal Grandmother No problems noted. Social History Smoking/Tobacco Use Status: Never Smoking risk assessment performed?: Yes Drug use: Never Do you feel safe in your relationship?: Yes Female Reproductive History Menstrual Menopause type: natural History History 2 Para 2 Hx # Term Pregnancies Multiple births Hx # Pregnancies Ectopic pregnancies AB induced Hx Number of Living Children 2 AB spontaneous
== END 2020-10-30 17:41 | disposition home or self-care (01) ==
LOC: ER 08:13 → MS 12:04
PROVIDERS: Student in an Organized Health Care Education/Training Program; Admitting Provider Internal Medicine; Emergency Provider Student in an Organized Health Care Education/Training Program; PCP Nurse Practitioner Family; Visit Provider Internal Medicine
DX: R07.89 Other chest pain (principal); R03.0 Elevated blood-pressure reading, without diagnosis of hypertension; E78.5 Hyperlipidemia, unspecified; E66.9 Obesity, unspecified; Z68.32 Body mass index [BMI] 32.0-32.9, adult; F32.9 Major depressive disorder, single episode, unspecified; R06.02 Shortness of breath
CPT/HCPCS: 36415; 80053; 87635; 93005; 99285; J1650; 71045; 83735; 83880; 84484; 85025; 85379; 93010; 93017; 99220; G0378

== ENCOUNTER 2020-12-02 09:55 | Emergency (ER) | payer BC, SELFPAY ==
--- NOTE | 2020-12-02 10:00 | DI.RAD_ITS ---
Exam(s) XR SHOULDER LT COMPLETE 2+V EXAM: XR SHOULDER LT COMPLETE 2+V CLINICAL HISTORY: pain. TECHNIQUE: 2D digital imaging was performed. COMPARISON: CR XR PORTABLE CHEST AP from 10/30/2020 FINDINGS: BONES: No acute fracture is present. No bony destructive lesion is seen. JOINTS: No dislocation present. Mild degenerative changes AC joint and glenohumeral joint. SOFT TISSUE: Normal. IMPRESSION: Mild degenerative changes. DATA REPOSITORY: RADIATION DOSE DELIVERED:
[2020-12-02 10:03] VITALS: BP 173/104; PULSE 78; RESP 16; TEMP 36.2; O2SAT 100
--- NOTE | 2020-12-02 10:13 | ED.GENADUL_ITS ---
Discharge Plan Disposition Patient Disposition: HOME Condition: Stable Discharge Details Clinical Impression: Left shoulder pain, Left shoulder strain Primary Care Provider: Naz Kelly ED Provider: Carlos Castillo Home Meds and New Rx's Prescriptions: Continued multivitamin Tablet 2 tab PO DAILY RF: 0 calcium-vitamin D3-vitamin K 500-200-40 mg-unit-mcg tablet 1 tab PO DAILY RF: 0 sertraline 100 mg tablet 150 mg PO DAILY Qty: 135 RF: 4 meloxicam 7.5 mg tablet 7.5 mg PO DAILY RF: 0 protein supplement Packet 1 packet PO BID RF: 0 lisinopril 10 mg tablet 10 mg PO DAILY Qty: 30 RF: 0 omeprazole 20 mg capsule,delayed release(DR/EC) 20 mg PO DAILY Qty: 30 RF: 0 Discharge Instructions Instructions: Shoulder Pain (ED) Additional Instructions: your xray did not show any broken bones you can take 1000mg tylenol and 600mg ibuprofen every 6 hours as needed for pain if pain continues in a week follow up with your primary care provider if you have severe worsening pain, fevers, difficulty breathing or feel more ill return to the emergency department Medical Decision Making 60 yo female with hx of hld and htn comes in with cc of left shoulder pain starting a few days ago and the day prior was doing a lot of heavy lifting, denies any trauma or falls. Denies chest pain/pressure, fevers, chills, dyspnea. She has pain with motion of the left shoulder. The arm is not swollen compared to the right. She hsa no pain or tenderness in the hand, wrist, forearm, elbow or distal and mid humerus. HAs tenderness to proximal humerus and lateral shoulder, no warmth or erythema. Minimal range of motion due to the pain. Normal intact distal sensation and pulses. Suspect sprain vs overuse but will xray to eval for possible fracture. No findings on exam or history to suggest dvt or septic joint xray negative in my read, suspect strain less likely rotator cuff injury. Placed in sling and advised to f/u with pcp if pain continues, return precautions given Differential Diagnosis Differential Diagnosis: sprain, strain, rotator cuff injury Imaging Data Radiologic Study: Attestation: I personally reviewed and interpreted this imaging study as follows: Imaging: X-Ray My impression: no acute findings HPI General Mode of arrival: ambulatory . Date/Time Provider Initiated Documentation: 12/02/20 10:04 . Limitations to Documentation: no limitations . Information obtained by: patient . History of Present Illness 60 year old F p resents to the emergency department with the chief complaint of left shoulder pain, described as moderate, Quality is described as aching, and is localized to the left and upper extremity. Patient reports no radiation. and it has been constant. Rest improves symptom(s), Movement worsens symptoms . Patient notes no other symptoms.. Patient did receive the following treatments prior to arrival, none Related Data Home Medications Medication Instructions Recorded Confirmed sertraline 100 mg tablet 150 mg PO DAILY #135 tab 08/04/19 12/02/20 calcium-vitamin D3-vitamin K 500 1 tab PO DAILY tab 10/11/19 12/02/20 mg-200 unit-40 mcg tablet multivitamin 2 tab PO DAILY tab 10/11/19 12/02/20 lisinopril 10 mg PO DAILY #30 tab 10/30/20 12/02/20 meloxicam 7.5 mg PO DAILY 10/30/20 12/02/20 omeprazole 20 mg PO DAILY #30 cap 10/30/20 12/02/20 protein supplement 1 packet PO BID 10/30/20 12/02/20 Previous Rx's Medication Instructions Recorded sertraline 100 mg tablet 150 mg PO DAILY #135 tab 08/04/19 lisinopril 10 mg PO DAILY #30 tab 10/30/20 omeprazole 20 mg PO DAILY #30 cap 10/30/20 Allergies Allergy/AdvReac Type Severity Reaction Status Date / Time No Known Allergies Allergy Verified 12/02/20 10:08 General Stated Complaint: Orthopedic KASH: 4 Review of Systems All systems reviewed & are unremarkable except as noted in HPI and below Constitutional Constitutional: Denies chills, Denies fever(s) and Denies weakness Cardiovascular Cardiovascular: Denies chest pain and Denies dyspnea Respiratory Respiratory: Denies cough and Denies dyspnea Gastrointestinal Gastrointestinal: Denies abdominal pain, Denies nausea and Denies vomiting Musculoskeletal Musculoskeletal: Denies joint swelling Neurologic Neurologic: Denies weakness [facility] [place] Medical History (Updated 12/02/20 @ 10:56 by Carlos Castillo MD) Depressive disorder Hyperlipidemia Obesity Surgical History History of bilateral ligation of fallopian tubes (08/28/88) History of section (03/25/86) 03/25/86, 08/28/88 Status post left foot surgery (01/21/18) Endoscopic plantar fasciotomy of left foot Family History Mother , at 76 of lung cancer Lung cancer Thyroid disease Father , at 69 of brain tumor Brain tumor Sister Thyroid disease Brother Epilepsy Brother No problems noted. Daughter No problems noted. Daughter Epilepsy Maternal Grandfather No problems noted. Maternal Grandmother No problems noted. Paternal Grandfather No problems noted. Paternal Grandmother No problems noted. Social History Smoking/Tobacco Use Status: Never Smoking risk assessment performed?: Yes Alcohol Intake: current Alcohol Intake frequency: a few times a month Drug use: Never Substance use type: does not use Do you feel safe at home: Yes Do you feel safe in your relationship?: Yes Female Reproductive History Menstrual Menopause type: natural History History 2 Para 2 Hx # Term Pregnancies Multiple births Hx # Pregnancies Ectopic pregnancies AB induced Hx Number of Living Children 2 AB spontaneous Exam Const General: no acute distress Orientation: alert HENMT Head: normal to inspection Ears: external ears normal General nose exam: external nose normal Mouth: moist mucous membranes Eyes General: appearance normal, both eyes and all related structures Neck Neck: normal visual inspection Resp Effort & Inspection: normal respiratory effort and able to speak in complete sentences Cardio Rate: regular rate Skin General skin exam: no rashes or lesions noted Neuro General: patient alert and patient oriented x3 Extrem General: normal to inspection Psych Mental Status: mental status grossly normal Course Vital Signs Vital signs: Vital Signs Temperature 36.2 C L 12/02/20 10:03 Pulse 78 12/02/20 10:03 Respiratory Rate 16 12/02/20 10:03 Blood Pressure 173/104 H 12/02/20 10:03 Pulse Oximetry 100 12/02/20 10:03 Temperature 36.2 C L 12/02/20 10:03 Temperature Source Skin 12/02/20 10:03 Pulse 78 12/02/20 10:03 Respiratory Rate 16 12/02/20 10:03 Respiratory Effort Non-Labored 12/02/20 10:03 Blood Pressure 173/104 H 12/02/20 10:03 Blood Pressure Position Sitting 12/02/20 10:03 Pulse Oximetry 100 12/02/20 10:03 Oxygen Delivery Method Room Air 12/02/20 10:03 Oxygen Flow Rate 0 12/02/20 10:03 Pain Level 10 12/02/20 10:03
[2020-12-02] MEDS: Ibuprofen 600 MG TAB PO (10:18)
--- NOTE | 2020-12-02 11:02 | DI.VRAD_ITS ---
PROCEDURE INFORMATION: Exam: XR Left Shoulder Exam date and time: 12/02/2020 10:15 AM Age: 60 years old Clinical indication: Pain; Shoulder; Left TECHNIQUE: Imaging protocol: XR Left shoulder. Views: 2 or more views. COMPARISON: CR XR PORTABLE CHEST AP 10/30/2020 9:25 AM FINDINGS: Bones/joints: Mild osteolysis of the distal left clavicle. Degenerative change of the greater tuberosity mildly. No fracture or dislocation. Soft tissues: Normal. IMPRESSION: Mild degenerative changes. Dictated and Authenticated by: Arabella Crystal MD. Ordering:EFREN Gonzalez MD
[2020-12-02 11:20] VITALS: BP 175/87
== END 2020-12-02 11:19 | disposition home or self-care (01) ==
PROVIDERS: Emergency Provider Emergency Medicine; PCP Nurse Practitioner Family
DX: S46.812A Strain of other muscles, fascia and tendons at shoulder and upper arm level, left arm, initial encounter (principal); X50.0XXA Overexertion from strenuous movement or load, initial encounter; M25.512 Pain in left shoulder
CPT/HCPCS: 99283; 73030

== ENCOUNTER 2020-12-15 01:39 | Outpatient (CLI) | payer BC, SELFPAY ==
[2020-12-15 09:32] LABS: Anion Gap 8.9 mmol/L (3-11); BUN 18 mg/dL (7-18); CO2 29.1 mmol/L (21.0-32.0); CREATININE 0.7 mg/dL (0.55-1.02); Calculated LDL 161 mg/dL (<100); Chloride 107 mmol/L (98-107); Cholesterol 239 mg/dL (<200); Glucose 94 mg/dL (74-106); HDL Cholesterol 56 mg/dL (40-60); Potassium 4.7 mmol/L (3.5-5.1); Sodium 145 mmol/L (136-145); Triglyceride 112 mg/dL (<150)
[2020-12-15 10:26] LABS: Hemoglobin A1C 5.5 % (<5.7)
== END 2020-12-15 01:40 | disposition home or self-care (01) ==
LOC: LBO 01:40
PROVIDERS: PCP Nurse Practitioner Family; Visit Provider Nurse Practitioner Family
DX: E78.5 Hyperlipidemia, unspecified (principal)
CPT/HCPCS: 36415; 80048; 80061; 83036

== ENCOUNTER 2020-12-15 02:58 | Outpatient (CLI) | payer BC, SELFPAY ==
--- NOTE | 2020-12-15 06:00 | DI.MAMMO_ITS ---
Exam(s) MAMMO SCREENING EXAM: MAMMO SCREENING CLINICAL HISTORY: screening,Z12.39 TECHNIQUE: Bilateral full field digital CC and MLO mammographic images were obtained with 3D tomosyn thesis and utilizing computer aided detection (CAD). COMPARISON: Available for comparison. FINDINGS: Masses/Architectural Distortion: None seen. Microcalcifications: No suspicious pleomorphic-type are seen. Skin Thickening/Nipple Retraction: None. IMPRESSION: 1. No significant interval change with no specific features of malignancy noted. 2. Unless there is more urgent need, screening mammography is recommended, as per [employer] [place] [employer] guidelines. BI-RADS Category 1 - Negative Breast Density - Category B - Scattered areas of fibroglandular density Breast density category C or D implies that the patient has dense breast tissue. Dense breast tissue is very common and is not abnormal but dense breast tissue can make it harder to find cancer on a ma mmogram. Also, dense breast tissue may increase their breast cancer risk. This information about the result of the mammogram report was provided to the patient to raise their awareness. Use this report when you speak with the patient about their risks for breast cancer, which includes their family hist ory. At that time, you may recommend for more screening tests (Ultrasound or MRI) as they might be us eful based on their risk. A negative radiographic report should not delay biopsy if a dominant or clinically suspicious mass is present. Up to ten percent of cancers are not identified on mammography. A negative report may reinforce clinical impression. Adenosis and dense breasts may obscure an underlying neoplasm. False positive reports average 6 to 10%. Patient will receive a letter notifying them of these results.
== END 2020-12-15 03:18 ==
PROVIDERS: PCP Nurse Practitioner Family; Visit Provider Nurse Practitioner Family
DX: Z12.31 Encounter for screening mammogram for malignant neoplasm of breast (principal)
CPT/HCPCS: 77063; 77067

== ENCOUNTER 2020-12-21 02:20 | Outpatient (CLI) | payer BC, SELFPAY ==
--- NOTE | 2020-12-21 13:00 | NS.NUTBLAN_ITS ---
Muna was referred to Medical Nutrition Therapy for weight management. 5'4 197 lbs BMI 33.8. Aliza reports that she has gained 50 lbs in last 10 years. She has tried to reduce portions, follow lower carb diet without success. Most recent labs (12/15/20): Chol: 239, LDL: 161, HDL: 56;A1C: 5.5%. Meds include statin, lisinopril. Trunkel l obesity. Has good overall knowledge about nutrition/weight management. Suspect Aliza has metabolic syndrome with insulin resistance in view of trunkel obesity, elevated BP and HLD. Session today focused on weight management principles of lower carb, higher protein diet with intermittent fasting. 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 May need to increase time of fasting if unable to lose weight on diet. Educated on [id number] kcal, 50-60 g CHO, 60-70 g protein, 45-55 g fat. Goal weight: 145-155 lbs. 5-10 lbs weight loss per month. Aliza to contact real estate underwriter on follow up appt.
== END 2020-12-21 02:21 | disposition home or self-care (01) ==
LOC: DS 02:20
PROVIDERS: PCP Nurse Practitioner Family; Visit Provider Dietitian, Registered
DX: R63.5 Abnormal weight gain (principal); E66.8 Other obesity; I10 Essential (primary) hypertension; E78.5 Hyperlipidemia, unspecified; Z68.33 Body mass index [BMI] 33.0-33.9, adult; Z71.3 Dietary counseling and surveillance
CPT/HCPCS: 97802

== ENCOUNTER 2021-03-30 18:40 | Outpatient (REF) | payer BC, SELFPAY ==
[2021-04-02 09:54] LABS: COVID-19 RT-PCR UVMMC Result Negative (Negative)
== END 2021-03-30 18:41 | disposition home or self-care (01) ==
LOC: LBN 18:40
PROVIDERS: PCP Nurse Practitioner Family; Visit Provider Physician Assistant Medical
DX: Z20.822 Contact with and (suspected) exposure to COVID-19 (principal); J06.9 Acute upper respiratory infection, unspecified
CPT/HCPCS: U0003

== ENCOUNTER 2021-05-08 02:03 | Outpatient (CLI) | payer BC, SELFPAY ==
[2021-05-08 13:30] LABS: FREE T4 0.85 ng/dL (0.76-1.46); TSH 1.89 uIU/mL (0.36-3.74)
== END 2021-05-08 02:04 | disposition home or self-care (01) ==
PROVIDERS: PCP Nurse Practitioner Family; Visit Provider Nurse Practitioner Family
DX: I10 Essential (primary) hypertension (principal); E66.8 Other obesity
CPT/HCPCS: 36415; 84439; 84443

== ENCOUNTER 2021-08-06 16:05 | Outpatient (REF) | payer BC, SELFPAY ==
[2021-08-06 21:28] LABS: Abs Immature Grans 0.02 10^3/uL (0.0-0.06); Absolute Basophil Count 0.02 10^3/uL (0.0-0.2); Absolute Eosinophil Count 0.12 10^3/uL (0.0-0.7); Absolute Lymphocyte Count 2.05 10^3/uL (1.2-3.4); Absolute Monocyte Count 0.53 10^3/uL (0.1-0.8); Absolute Neutrophil Count 4.03 10^3/uL (1.2-6.7); Basophils % 0.3; Eosinophils % 1.8; HCT 36.6 % (36.0-46.0); HGB 11.9 g/dL (11.2-15.7); Immature Grans % 0.3; Lymphocytes % 30.3; MCH 28.9 pg (27.0-33.0); MCHC 32.5 % (32.0-36.0); MCV 89 fL (80-95); Monocytes % 7.8; Neutrophils % 59.5; Platelet Count 215 10^3/uL (130-400); RBC 4.12 10^6/uL (3.93-5.22); RDW 13.2 % (11.7-14.6); RDW-SD 43.4 fL; WBC 6.77 10^3/uL (4.4-10.8)
[2021-08-06 21:31] LABS: ESR 23 mm/hr (0-30)
[2021-08-06 21:48] LABS: ALT 62 U/L (14-59); AST 29 U/L (15-37); Alkaline Phosphatase 185 U/L (46-116); Anion Gap 8.9 mmol/L (3-11); BUN 21 mg/dL (7-18); Bilirubin, Total 0.2 mg/dL (0.2-1.0); C-Reactive Protein 0.32 mg/dL (0.0-0.3); CO2 27.1 mmol/L (21.0-32.0); CREATININE 0.5 mg/dL (0.55-1.02); Calcium 8.7 mg/dL (8.5-10.1); Chloride 103 mmol/L (98-107); Glucose 94 mg/dL (74-106); Potassium 4.2 mmol/L (3.5-5.1); Sodium 139 mmol/L (136-145); Total Protein 7.3 g/dL (6.4-8.2)
== END 2021-08-06 16:06 | disposition home or self-care (01) ==
LOC: LBN 16:05
PROVIDERS: PCP Nurse Practitioner Family; Visit Provider Family Medicine
DX: M25.562 Pain in left knee (principal)
CPT/HCPCS: 80053; 85652; 85025; 86140

== ENCOUNTER → 2021-08-06 18:53 | Outpatient (CLI) | payer BC, SELFPAY ==
--- NOTE | 2021-08-06 | DI.RAD_ITS ---
Exam(s) XR KNEE LT 3V AP,LAT,ROHIT EXAM: XR KNEE LT 3V AP,LAT,ROHIT CLINICAL HISTORY: LT KNEE PAIN, M25.562. TECHNIQUE: 2D digital imaging was performed. Three views. COMPARISON: No exams were available for comparison FINDINGS: BONES: No acute fracture is present. No bony destructive lesion is seen. JOINTS: The knee is normally aligned. No joint effusion is seen. Minimal degenerative changes. SOFT TISSUE: Normal. IMPRESSION: Minimal degenerative changes. DATA REPOSITORY: RADIATION DOSE DELIVERED:
== END ==
PROVIDERS: PCP Nurse Practitioner Family; Visit Provider Family Medicine
DX: M25.562 Pain in left knee (principal)
CPT/HCPCS: 73562

== ENCOUNTER 2021-08-31 20:10 | Outpatient (REF) | payer BC, SELFPAY ==
[2021-08-31 20:30] LABS: Bilirubin Negative (Negative); Blood Moderate (Negative); Clarity Turbid (Clear); Glucose Negative (Negative); Ketones Negative (Negative); Leukocyte Esterase Moderate (Negative); Nitrite Positive (Negative); Specific Gravity >= 1.030 (1.005-1.025); Urobilinogen 0.2 EU/dL (Up TO 0.2)
[2021-08-31 20:41] LABS: Bacteria Moderate HPF (Negative); Epithelial Cells Few HPF (Negative); Other Cells Few Renal (Negative); WBC >50 HPF (0-5)
[2021-08-31 20:42] LABS: C & S Indicated? Yes; Crystals Many Amorphous HPF (Negative); Mucus Negative (Negative)
== END 2021-08-31 20:11 | disposition home or self-care (01) ==
LOC: LBN 20:10
PROVIDERS: PCP Nurse Practitioner Family; Visit Provider Physician Assistant
DX: N39.0 Urinary tract infection, site not specified (principal)
CPT/HCPCS: 87077; 81003; 81015; 87086; 87186

== ENCOUNTER 2021-12-05 16:37 | Emergency (ER) | payer BC, SELFPAY ==
[2021-12-05 16:51] VITALS: BP 162/91; PULSE 83; RESP 18; TEMP 36.5; O2SAT 99
--- NOTE | 2021-12-05 17:00 | DI.RAD_ITS ---
Exam(s) XR WRIST RT COMPLETE EXAM: XR WRIST RT COMPLETE CLINICAL HISTORY: pain. TECHNIQUE: 2D digital imaging was performed of the right wrist. Three views were obtained. PA, lat eral and oblique views were obtained. COMPARISON: No exams were available for comparison FINDINGS: BONES: No acute fracture is present. No bony destructive lesion is seen. Cystic changes in the proxim al ulnar aspect of the lunate. JOINTS: The carpal bones are normally aligned. Positive ulnar variance. SOFT TISSUE: Normal. IMPRESSION: Findings suggested of ulnar impaction syndrome. Consider MRI of the wrist. DATA REPOSITORY: RADIATION DOSE DELIVERED:
--- NOTE | 2021-12-05 17:15 | ED.GENADUL_ITS ---
Discharge Plan Disposition Patient Disposition: HOME Condition: Stable Discharge Details Clinical Impression: Right wrist pain, Tendinitis Primary Care Provider: Naz Kelly ED Provider: Carlos Castillo Home Meds and New Rx's Prescriptions: Continued multivitamin Tablet 2 tab PO DAILY Rx Instructions: Gummies, 2 gummies equal one tablet dosage calcium-vitamin D3-vitamin K 500-200-40 mg-unit-mcg tablet 1 tab PO DAILY rosuvastatin 10 mg tablet 10 mg PO DAILY Qty: 90 4RF Rx Instructions: Take 1 tablet daily lisinopril 20 mg tablet 20 mg PO DAILY Qty: 90 4RF oxaprozin 600 mg tablet 600 mg PO BID PRN (Reason: pain) Qty: 60 1RF protein supplement Packet 1 packet PO BID Label Comments: Rebecca (brand name). omeprazole 20 mg capsule,delayed release(DR/EC) 20 mg PO DAILY Qty: 30 0RF Discharge Instructions Instructions: Tendinitis (ED) Additional Instructions: wear the splint if you are being active, you can take it off if resting follow up with your primary care provider in 1 week if pain is not improving if you develop fevers, feel more ill or redness of the skin return to the emergency department Medical Decision Making 61 yo female comes in with cc of right wrist pain. She states this past Friday she was moving a lot of chairs and her wrist on the right became sore. She then was walking her dog and the dog pulled on her leash causing her right wrist to be stretched, no falls or trauma. She states since then she has had right wrist pain so came here. Denies fevers, chills, redness. She localizes the pain to the medial side and has pain along the proximal lateral thumb and radial wrist, no visible or palpable deformities, no erythema or warmth, full rom, normal pulses and sensation. suspect tendinitis vs arthritis, will xray to evaluate for fracture. 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 She remains stable and discussed pts with her, she will be placed in splint for comfort and advised to f/u with pcp, return precautions given Differential Diagnosis Differential Diagnosis: tendonitis, arthritis, Imaging Data Radiologic Study: Attestation: I personally reviewed and interpreted this imaging study as follows: Imaging: X-Ray My impression: no acute findings Radiologist's impression: IMPRESSION: Ulna abutment syndrome. Consider MRI of the wrist. HPI General Mode of arrival: ambulatory . Date/Time Provider Initiated Documentation: 12/05/21 17:04 . Limitations to Documentation: no limitations . Information obtained by: patient . History of Present Illness 61 year old F presents to the emergency department with the chief complaint of right wrist pa in, described as moderate, Quality is described as aching, Patient started experiencing this day(s) (3) and it has been constant. Rest improves symptom(s), Movement worsens symptoms . Patient notes no other symptoms.. Patient did receive the following treatments prior to arrival, other (tylenol) Related Data Home Medications Medication Instructions Recorded Confirmed calcium-vitamin D3-vitamin K 500 1 tab PO DAILY 10/11/19 12/05/21 mg-200 unit-40 mcg tablet multivitamin 2 tab PO DAILY 10/11/19 12/05/21 omeprazole 20 mg capsule,delayed 20 mg PO DAILY #30 caps 10/30/20 12/05/21 release protein supplement 1 packet PO BID 10/30/20 12/05/21 rosuvastatin 10 mg tablet 10 mg PO DAILY #90 tabs 12/12/20 12/05/21 lisinopril 20 mg tablet 20 mg PO DAILY #90 tabs 12/27/20 12/05/21 oxaprozin 600 mg tablet 600 mg PO BID PRN pain #60 tabs 09/20/21 12/05/21 Previous Rx's Medication Instructions Recorded omeprazole 20 mg capsule,delayed 20 mg PO DAILY #30 caps 10/30/20 release rosuvastatin 10 mg tablet 10 mg PO DAILY #90 tabs 12/12/20 lisinopril 20 mg tablet 20 mg PO DAILY #90 tabs 12/27/20 oxaprozin 600 mg tablet 600 mg PO BID PRN pain #60 tabs 09/20/21 Allergies Allergy/AdvReac Type Severity Reaction Status Date / Time No Known Allergies Allergy Verified 12/05/21 16:57 General Stated Complaint: Orthopedic KASH: 4 Review of Systems All systems reviewed & are unremarkable except as noted in HPI and below Constitutional Constitutional: Denies chills, Denies fever(s) and Denies weakness Cardiovascular Cardiovascular: Denies chest pain and Denies dyspnea Respiratory Respiratory: Denies cough and Denies dyspnea Gastrointestinal Gastrointestinal: Denies abdominal pain, Denies nausea and Denies vomiting Integumentary/Breasts Skin/Breast: Denies rash Neurologic Neurologic: Denies weakness PFSH All Active Problems (Updated 12/05/21 @ 17:47 by Carlos Castillo MD) Right wrist pain (Acute) Tendinitis (Acute) Chondromalacia of left patella (Acute) Essential hypertension (Chronic) Left shoulder strain (Acute) Obesity (Chronic) Hyperlipidemia (Chronic) Surgical History History of bilateral ligation of fallopian tubes (08/28/88) History of section (03/25/86) 03/25/86, 08/28/88 Status post left foot surgery (01/21/18) Endoscopic plantar fasciotomy of left foot Family History Mother , at 76 of lung cancer Lung cancer Thyroid disease Father , at 69 of brain tumor Brain tumor Sister Thyroid disease Brother Epilepsy Brother No problems noted. Daughter No problems noted. Daughter Epilepsy Maternal Grandfather No problems noted. Maternal Grandmother No problems noted. Paternal Grandfather No problems noted. Paternal Grandmother No problems noted. Social History Smoking/Tobacco Use Status: Never Second Hand Exposure: Yes Smoking risk assessment performed?: Yes Alcohol Intake: current Alcohol Intake frequency: a few times a month Alcohol type: hard liquor Drug use: Never Substance use type: does not use Caregiver/Support person: No Household members: significant other Housing: house Communication Needs: None Do you need help understanding health information?: Rarely Pets and animals: Yes Pets and animals: dog(s) Sexually active: Yes Do you think of yourself as: straight/heterosexual Current gender identity: female What is your relationship status?: living with partner How often do you talk on the phone with friends or family?: once per week Panel score (0-1 are the most socially isolated patients): 1 Duration: 15-30 minutes/day Frequency: 3-4 times per week Giuliana/Temple: Sikh Special giuliana needs: No Seatbelt use: always 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 Do you feel safe at home: Yes Do you feel safe in your relationship?: Yes Victim of physical abuse: No Victim of emotional abuse: No Victim of sexual abuse: No Would you like helpful sources: No Female Reproductive History Menstrual Menopause type: natural History History 2 Para 2 Hx # Term Pregnancies Multiple births Hx # Pregnancies Ectopic pregnancies AB induced Hx Number of Living Children 2 AB spontaneous Exam Const General: no acute distress Orientation: alert HENMT Head: normal to inspection Ears: external ears normal General nose exam: external nose normal Mouth: moist mucous membranes Eyes General: appearance normal, both eyes and all related structures Neck Neck: normal visual inspection Resp Effort & Inspection: normal respiratory effort and able to speak in complete sentences Cardio Rate: regular rate Skin General skin exam: no rashes or lesions noted Neuro General: patient alert and patient oriented x3 Extrem General: normal to inspection and full ROM Psych Mental Status: mental status grossly normal Course Vital Signs Vital signs: Vital Signs Temperature 36.5 C 12/05/21 16:51 Pulse 83 12/05/21 16:51 Respiratory Rate 18 12/05/21 16:51 Blood Pressure 162/91 H 12/05/21 16:51 Pulse Oximetry 99 12/05/21 16:51 Temperature 36.5 C 12/05/21 16:51 Temperature Source Tympanic 12/05/21 16:51 Pulse 83 12/05/21 16:51 Respiratory Rate 18 12/05/21 16:51 Respiratory Effort Non-Labored 12/05/21 16:55 Blood Pressure 162/91 H 12/05/21 16:51 Blood Pressure Position Sitting 12/05/21 16:51 Pulse Oximetry 99 12/05/21 16:51 Oxygen Delivery Method Room Air 12/05/21 16:51 Oxygen Flow Rate 0 12/05/21 16:51 Pain Level 9 12/05/21 16:57 PAWSS Have you Been Recently Intoxicated or Drunk Within the Last 30 days?: No Have you Ever Experienced Previous Episodes of Alcohol Withdrawal?: No Have you ever Experienced Withdrawal Seizures?: No Have you ever Experienced Delirium Tremens(DT)s?: No Have you ever undergone Alcohol Rehabilitation Treatment (i.e, inpt ot outpatient treatment programs)?: No Have you ever Experienced Blackouts?: No Have you ever Combined Alcohol with other Downers within the last 90 days?: No Have you ever Combined Alcohol with any other Substance of Abuse during the last 90 days?: No Positive Blood Alcohol level on Presentation? [PCS.BAL]: No Evidence of Increased Autonomic Activity (i.e. HR>120, tremor, sweating, agitation, nausea)?: No Result: 0
--- NOTE | 2021-12-05 17:53 | DI.VRAD_ITS ---
PROCEDURE INFORMATION: Exam: XR Right Wrist Exam date and time: 12/05/2021 5:41 PM Age: 61 years old Clinical indication: Other: Pain TECHNIQUE: Imaging protocol: Radiologic exam of the Right wrist. Views: 3 or more views. COMPARISON: No relevant prior studies available. FINDINGS: Bones/joints: Ulna plus variant. Cystic changes present in the lunate carpal bone. No acute fractures. Soft tissues: Normal. IMPRESSION: Ulna abutment syndrome. Consider MRI of the wrist. Dictated and Authenticated by: Jb Brush MD. Ordering:EFREN Gonzalez MD
== END 2021-12-05 18:30 | disposition home or self-care (01) ==
PROVIDERS: Emergency Provider Emergency Medicine; PCP Nurse Practitioner Family
DX: M25.531 Pain in right wrist (principal); M77.8 Other enthesopathies, not elsewhere classified
CPT/HCPCS: 29125; 99283; 73110; 99282

== ENCOUNTER 2022-01-03 02:09 | Outpatient (CLI) | payer BC, SELFPAY ==
--- NOTE | 2022-01-03 06:45 | DI.MAMMO_ITS ---
Exam(s) MAMMO SCREENING EXAM: MAMMO SCREENING CLINICAL HISTORY: screening.Z12.39 TECHNIQUE: Mammograms were interpreted according to the usual protocol including computer analysis w [employer] CAD system, tomosynthesis and C-view imaging. COMPARISON: FINDINGS: The breasts are of moderate density with fairly symmetrical distribution of fibroglandular tissue. N o dominant mass or clumped microcalcification is identified in either breast. The current examinatio n is compared with previous examinations including November 2020 and there has been no gross interva l change in appearance in comparison with prior studies. IMPRESSION: The no specific evidence of malignancy at this time. Routine screening examinations are suggested at yearly intervals in this age group according to the ACS ACR guidelines. BI-RADS Category 1 - Negative Breast Density - Category B - Scattered areas of fibroglandular density
== END 2022-01-03 02:29 ==
LOC: DI 02:09
PROVIDERS: PCP Nurse Practitioner Family; Visit Provider Nurse Practitioner Family
DX: Z12.31 Encounter for screening mammogram for malignant neoplasm of breast (principal)
CPT/HCPCS: 77063; 77067

== ENCOUNTER 2022-01-31 02:51 | Outpatient (CLI) | payer BC, SELFPAY ==
[2022-01-31 07:46] LABS: HCT 39.3 % (36.0-46.0); HGB 12.9 g/dL (11.2-15.7); MCH 29.5 pg (27.0-33.0); MCHC 32.8 % (32.0-36.0); MCV 90 fL (80-95); MPV 11.4 fL (8.0-11.0); Platelet Count 229 10^3/uL (130-400); RBC 4.38 10^6/uL (3.93-5.22); RDW 12.9 % (11.7-14.6); RDW-SD 43.2 fL; WBC 4.97 10^3/uL (4.4-10.8)
[2022-01-31 08:13] LABS: ALT 72 U/L (14-59); AST 41 U/L (15-37); Alkaline Phosphatase 176 U/L (46-116); Anion Gap 7.7 mmol/L (3-11); BUN 18 mg/dL (7-18); Bilirubin, Total 0.4 mg/dL (0.2-1.0); CO2 30.3 mmol/L (21.0-32.0); CREATININE 0.7 mg/dL (0.55-1.02); Calcium 9.1 mg/dL (8.5-10.1); Calculated LDL 101 mg/dL (<100); Chloride 105 mmol/L (98-107); Cholesterol 190 mg/dL (<200); Estimated GFR 99.57 (mL/min/1.73m2); Ferritin 94 ng/mL (8-252); Glucose 109 mg/dL (74-106); HDL Cholesterol 68 mg/dL (40-60); Potassium 4.1 mmol/L (3.5-5.1); Sodium 143 mmol/L (136-145); TSH (W/Ref FT4) 2.75 uIU/mL (0.36-3.74); Total Protein 8.1 g/dL (6.4-8.2); Triglyceride 105 mg/dL (<150)
[2022-01-31 08:18] LABS: GGT 251 U/L (5-55)
[2022-02-01 10:42] LABS: HBs Antibody, Qual Negative (See Note); HBs Antibody, Quant <3.1 mIU/mL (See Note); Hepatitis B Core Antibody Negative (Negative); Hepatitis B surface Ag Negative (Negative); Hepatitis C Ab w Rflx HCV PCR Negative (Negative)
== END 2022-01-31 02:52 | disposition home or self-care (01) ==
LOC: LBO 02:52
PROVIDERS: PCP Nurse Practitioner Family; Visit Provider Nurse Practitioner Family
DX: E78.5 Hyperlipidemia, unspecified (principal); G47.00 Insomnia, unspecified; R79.89 Other specified abnormal findings of blood chemistry
CPT/HCPCS: 36415; 80053; 80061; 85027; 86704; 86706; 86803; 87340; 82728; 82977; 84443

== ENCOUNTER 2022-05-14 02:10 | Outpatient (CLI) | payer BC, SELFPAY ==
[2022-05-14 08:53] LABS: Anion Gap 7.3 mmol/L (3-11); BUN 17 mg/dL (7-18); CO2 30.7 mmol/L (21.0-32.0); CREATININE 0.9 mg/dL (0.55-1.02); Calcium 9.3 mg/dL (8.5-10.1); Chloride 102 mmol/L (98-107); Estimated GFR 73.19 (mL/min/1.73m2); Glucose 102 mg/dL (74-106); Potassium 3.9 mmol/L (3.5-5.1); Sodium 140 mmol/L (136-145)
== END 2022-05-14 02:11 | disposition home or self-care (01) ==
LOC: LBO 02:10
PROVIDERS: PCP Nurse Practitioner Family; Visit Provider Nurse Practitioner Family
DX: I10 Essential (primary) hypertension (principal); E66.01 Morbid (severe) obesity due to excess calories; R60.0 Localized edema
CPT/HCPCS: 36415; 80048

== ENCOUNTER 2022-09-12 19:27 | Emergency (ER) | payer BC, SELFPAY ==
[2022-09-12 19:53] VITALS: BP 157/92; PULSE 106; RESP 16; TEMP 36.5; O2SAT 99
[2022-09-12] MEDS: Ibuprofen 600 MG TAB PO (21:10)
--- NOTE | 2022-09-12 21:16 | ED.GENADUL_ITS ---
Discharge Plan Disposition Patient Disposition: Home Discharge Details Clinical Impression: Puncture wound of left forearm Primary Care Provider: Naz Kelly ED Provider: Jose Wiley Home Meds and New Rx's Prescriptions: New cephalexin 500 mg tablet 500 mg PO QID 3 Days Qty: 12 0RF Continued multivitamin Tablet 2 tab PO DAILY Rx Instructions: Gummies, 2 gummies equal one tablet dosage hydrochlorothiazide 25 mg tablet 12.5 - 25 mg PO DAILY Qty: 90 3RF Rx Instructions: Take half a tablet daily for one week then increase to 25mg daily rosuvastatin 10 mg tablet 10 mg PO DAILY Qty: 90 3RF Rx Instructions: Take 1 tablet daily lisinopril 40 mg tablet 40 mg PO DAILY Qty: 90 3RF semaglutide 0.25 mg or 0.5 mg(2 mg/1.5 mL) pen injector 0.25 mg subcut QWEEK Qty: 1.5 0RF Rx Instructions: 0.25mg weekly (DME) pen needle, diabetic 31 gauge x 5/16 needle See Rx Instructions .ROUTE .MEDSUPPLY Qty: 100 3RF Rx Instructions: Use with pen daily oxaprozin 600 mg tablet 600 mg PO BID PRN (Reason: pain) Qty: 60 1RF protein supplement Packet 1 packet PO BID Patient Comments: Asifginger (brand name). Discharge Instructions Instructions: Puncture Wound (ED) Additional Instructions: Please continue to monitor wound and return immediately for any new or significant worsening of symptoms. Take your antibiotics as prescribed and for the full 3 days. If you have any new or significant worsening of symptoms return the emergency department for reassessment otherwise take ibuprofen as needed for pain and apply ice to help with swelling. Referrals: Naz Kelly, GARETH [Primary Care Provider] - (As needed for reassessment) Discharge Data Discharge Date/Time-TO BE ENTERED AT DEPARTURE: 09/12/22 21:32 Medical Decision Making Patient presenting the emergency department for chief complaint of left elbow/forearm injury. She states she was attempting to get something out of a pickup truck and when she turned around a nail struck her in the proximal forearm. Patient states significant pain and discomfort, some radiation of pain distally and proximally otherwise no other injury or trauma noted. Physical exam shows full range of motion, appropriate distal sensation. Puncture does seem to be just distal to the radial epicondyle and I question if there may be some slight inflammatory response causing the radiation of the symptoms. Patient was given acute wound care, states she is up-to-date on tetanus. Will recommend that patient takes frrt-aac-[id number] NSAIDs as needed for pain, apply ice, and monitor symptoms and return for any new or worsening symptoms otherwise I do not feel there are any emergent interventions needed at this time. After discussion of diagnosis and plan of care patient has no further needs, questions, or concerns and states clear understanding to return to the emergency department for any worsening symptoms. This documentation was generated using [email or web address] system, please disregard any oddities of phrase or misspellings. HPI General Mode of arrival: ambulatory . Date/Time Provider Initiated Documentation: 09/12/22 20:06 . Limitations to Documentation: no limitations . Information obtained by: patient and RN notes reviewed . History of Present Illness 62 year old F presents to the emergency department with the chief complaint of Left arm injury, puncture wound, described as moderate and severe, and is localized to the left and upper extremity. Patient reports no radiation. Patient started experiencing this hour(s) (1) and it has been constant. No relieving factors improve symptom(s), Movement worsens symptoms . Patient notes no other symptoms.. Patient did receive the following treatments prior to arrival, none Related Data Home Medications Medication Instructions Recorded Confirmed multivitamin 2 tab PO DAILY 10/11/19 09/12/22 protein supplement 1 packet PO BID 10/30/20 09/12/22 oxaprozin 600 mg tablet 600 mg PO BID PRN pain #60 tabs 09/20/21 09/12/22 lisinopril 40 mg tablet 40 mg PO DAILY #90 tabs 12/14/21 09/12/22 rosuvastatin 10 mg tablet 10 mg PO DAILY #90 tabs 12/14/21 09/12/22 pen needle, diabetic 31 gauge x #100 ea 02/27/22 09/12/2208/13 semaglutide 0.25 mg or 0.5 mg (2 0.25 mg (0.2 mL) subcut QWEEK #1.5 02/27/22 09/12/22 mg/1.5 mL) subcutaneous pen mL injector hydrochlorothiazide 25 mg tablet 12.5 - 25 mg PO DAILY #90 tabs 03/29/22 09/12/22 cephalexin 500 mg tablet 500 mg PO QID 3 days #12 tabs 09/12/22 Previous Rx's Medication Instructions Recorded oxaprozin 600 mg tablet 600 mg PO BID PRN pain #60 tabs 09/20/21 lisinopril 40 mg tablet 40 mg PO DAILY #90 tabs 12/14/21 rosuvastatin 10 mg tablet 10 mg PO DAILY #90 tabs 12/14/21 pen needle, diabetic 31 gauge x #100 ea 02/27/2208/13 semaglutide 0.25 mg or 0.5 mg (2 0.25 mg (0.2 mL) subcut QWEEK #1.5 02/27/22 mg/1.5 mL) subcutaneous pen mL injector hydrochlorothiazide 25 mg tablet 12.5 - 25 mg PO DAILY #90 tabs 03/29/22 cephalexin 500 mg tablet 500 mg PO QID 3 days #12 tabs 09/12/22 Allergies Allergy/AdvReac Type Severity Reaction Status Date / Time amlodipine AdvReac Mild Peripheral Verified 09/12/22 19:58 edema General Stated Complaint: Laceration KASH: 4 Review of Systems Narrative: 6 systems reviewed and unremarkable except what is marked below. Musculoskeletal Musculoskeletal: Reports as per HPI, Reports radiating pain into limb and Reports tingling Integumentary/Breasts Skin/Breast: Reports as per HPI and Reports wounds Neurologic Neurologic: Reports tingling PFSH All Active Problems (Updated 09/12/22 @ 21:16 by Jose Wiley NP) Puncture wound of left forearm (Acute) Severe obstructive sleep apnea (Chronic) PSG 02/19 BATES (nonalcoholic steatohepatitis) (Chronic) Insomnia (Chronic) Essential hypertension (Chronic) Hyperlipidemia (Chronic) Severe obesity (BMI 35.0-35.9 with comorbidity) (Chronic) Medical History (Updated 09/12/22 @ 21:16 by Jose Wiley NP) Depressive disorder Surgical History History of bilateral ligation of fallopian tubes (08/28/88) History of section (03/25/86) 03/25/86, 08/28/88 Status post left foot surgery (01/21/18) Endoscopic plantar fasciotomy of left foot Family History Mother , at 76 of lung cancer Lung cancer Thyroid disease Father , at 69 of brain tumor Brain tumor Sister Thyroid disease Brother Epilepsy Brother No problems noted. Daughter No problems noted. Daughter Epilepsy Maternal Grandfather No problems noted. Maternal Grandmother No problems noted. Paternal Grandfather No problems noted. Paternal Grandmother No problems noted. Social History Smoking/Tobacco Use Status: Never Second Hand Exposure: Yes Smoking risk assessment performed?: Yes Alcohol Intake: current Alcohol Intake frequency: a few times a week Alcohol type: wine and hard liquor Drug use: Never Substance use type: does not use Caregiver/Support person: No Household members: significant other Housing: house Communication Needs: None Do you need help understanding health information?: Never Pets and animals: Yes Pets and animals: dog(s) Sexually active: Yes Do you think of yourself as: straight/heterosexual Current gender identity: female What is your relationship status?: living with partner How often do you talk on the phone with friends or family?: twice per week How often do you get together with friends or relatives?: decline to answer Do you belong to any clubs or organized social groups?: yes Panel score (0-1 are the most socially isolated patients): 2 What type of physical activity do you participate in: none Giuliana/Caodaism: Confucianism Special giuliana needs: No Seatbelt use: always 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 Do you feel safe at home: Yes Do you feel safe in your relationship?: Yes Victim of physical abuse: No Victim of emotional abuse: No Victim of sexual abuse: No Would you like helpful sources: No Female Reproductive History Menstrual Menopause type: natural History History 2 Para 2 Hx # Term Pregnancies Multiple births Hx # Pregnancies Ectopic pregnancies AB induced Hx Number of Living Children 2 AB spontaneous Exam Const General: cooperative and not ill appearing Orientation: alert, awake and oriented x3 HENMT Mouth: moist mucous membranes Resp Effort & Inspection: normal respiratory effort, able to speak in complete sentences and no respiratory distress Cardio Rate: regular rate Rhythm: regular rhythm Pulses: normal peripheral pulses Skin General skin exam: no rashes or lesions noted Neuro General: patient alert, patient awake, patient oriented x3, moves all extremities and no focal motor deficits Sensory Exam: no sensory deficits noted Extrem General: normal exam except as noted Right upper extremity: full ROM, normal capillary refill, elbow/forearm Details: normal ROM, penetrating wound forearm proximal posterior Details: single and distal pulses intact; no swelling and hand Details: normal capillary refill, neuromotor exam normal, neurosensory exam normal, tendon exam normal and normal ROM of fingers; no tenderness Course Vital Signs Vital signs: Vital Signs Temperature 36.5 C 09/12/22 19:53 Pulse 106 H 09/12/22 19:53 Respiratory Rate 16 09/12/22 19:53 Blood Pressure 157/92 H 09/12/22 19:53 Pulse Oximetry 99 09/12/22 19:53 Temperature 36.5 C 09/12/22 19:53 Temperature Source Temporal Artery Scan 09/12/22 19:53 Pulse 106 H 09/12/22 19:53 Respiratory Rate 16 09/12/22 19:53 Respiratory Effort Normal 09/12/22 19:53 Blood Pressure 157/92 H 09/12/22 19:53 Blood Pressure Position Sitting 09/12/22 19:53 Pulse Oximetry 99 09/12/22 19:53 Oxygen Delivery Method Room Air 09/12/22 19:53 Oxygen Flow Rate 0 09/12/22 19:53 Pain Level 10 09/12/22 19:53
[2022-09-13] MEDS: Cephalexin 500 MG CAP PO (00:20)
--- NOTE | 2022-09-13 02:38 | NUR.NOTE ---
bacitracin and bandaid applied to finger. small frog splint applied.Nursing Note:
== END 2022-09-12 21:32 | disposition home or self-care (01) ==
PROVIDERS: Emergency Provider Nurse Practitioner Family; PCP Nurse Practitioner Family
DX: S51.832A Puncture wound without foreign body of left forearm, initial encounter (principal); W26.8XXA Contact with other sharp object(s), not elsewhere classified, initial encounter
CPT/HCPCS: 99283; 99284

== ENCOUNTER 2022-12-31 01:47 | Outpatient (CLI) | payer BC, SELFPAY ==
[2022-12-31 08:04] LABS: Hemoglobin A1C 5.4 % (<5.7)
[2022-12-31 08:46] LABS: ALT 55 U/L (14-59); AST 27 U/L (15-37); Albumin 3.8 g/dL (3.4-5.0); Alkaline Phosphatase 170 U/L (46-116); Anion Gap 8.6 mmol/L (3-11); BUN 26 mg/dL (7-18); Bilirubin, Total 0.3 mg/dL (0.2-1.0); CO2 30.4 mmol/L (21.0-32.0); CREATININE 0.9 mg/dL (0.55-1.02); Calcium 9.5 mg/dL (8.5-10.1); Calculated LDL 132 mg/dL (<100); Chloride 100 mmol/L (98-107); Cholesterol 209 mg/dL (<200); Estimated GFR 73.19 (mL/min/1.73m2); Glucose 113 mg/dL (74-106); HDL Cholesterol 59 mg/dL (40-60); Potassium 3.8 mmol/L (3.5-5.1); Sodium 139 mmol/L (136-145); Total Protein 7.9 g/dL (6.4-8.2); Triglyceride 92 mg/dL (<150)
== END 2022-12-31 01:48 | disposition home or self-care (01) ==
PROVIDERS: PCP Nurse Practitioner Family; Visit Provider Nurse Practitioner Family
DX: Z00.00 Encounter for general adult medical examination without abnormal findings (principal); R74.8 Abnormal levels of other serum enzymes
CPT/HCPCS: 36415; 80053; 80061; 84075; 84080; 83036

== ENCOUNTER → 2023-01-07 00:19 | Outpatient (CLI) | payer BC, SELFPAY ==
--- NOTE | 2023-01-07 06:15 | DI.MAMMO_ITS ---
Exam(s) MAMMO SCREENING EXAM: MAMMO SCREENING CLINICAL HISTORY: screening,z12.39 TECHNIQUE: Bilateral full field digital CC and MLO mammographic images were obtained with 3D tomosyn thesis and utilizing computer aided detection (CAD). COMPARISON: Available for comparison. FINDINGS: Masses/Architectural Distortion: None seen. Microcalcifications: No suspicious pleomorphic-type are seen. Skin Thickening/Nipple Retraction: None. IMPRESSION: 1. No significant interval change with no specific features of malignancy noted. 2. Unless there is more urgent need, screening mammography is recommended, as per [place] [employer] guidelines. BI-RADS Category 1 - Negative Breast Density - Category B - Scattered areas of fibroglandular density Breast density category C or D implies that the patient has dense breast tissue. Dense breast tissue is very common and is not abnormal but dense breast tissue can make it harder to find cancer on a ma mmogram. Also, dense breast tissue may increase their breast cancer risk. This information about the result of the mammogram report was provided to the patient to raise their awareness. Use this report when you speak with the patient about their risks for breast cancer, which includes their family hist ory. At that time, you may recommend for more screening tests (Ultrasound or MRI) as they might be us eful based on their risk. A negative radiographic report should not delay biopsy if a dominant or clinically suspicious mass is present. Up to ten percent of cancers are not identified on mammography. A negative report may reinforce clinical impression. Adenosis and dense breasts may obscure an underlying neoplasm. False positive reports average 6 to 10%. Patient will receive a letter notifying them of these results.
== END ==
LOC: DI 00:20 → OBS 07-03 14:30 → DI 07-03 14:34
PROVIDERS: PCP Nurse Practitioner Family; Visit Provider Nurse Practitioner Family
DX: Z12.31 Encounter for screening mammogram for malignant neoplasm of breast (principal)
CPT/HCPCS: 77063; 77067

== ENCOUNTER 2024-01-15 19:13 | Outpatient (CLI) | payer BC, SELFPAY ==
--- OUTSIDE RECORDS SUMMARY | 2024-01-15 19:15 | XMS_ITS | Encounter Summary ---
Author Organization [facility] Address [address] [place] [address] Care Team Providers Care Grinder Operator External Tool Name Role Phone Unknown, Provider Primary Care Provider Encounter Details Date Type Department Care Team (Late st Contact Info) Description 01/31/2022 Lab Requisition [facility] Pathology & Laboratory Medicine - [address] [address] Outr Resulting Lab, Provider Social History Tobacco Use Types Packs/Day Years Used Date Smoking Tobacco: Never Assessed Sex and Gender Information Value Date Recorded Sex Assigned at Not on file Gender Identity Not on file Sexual Orientation Not on file documented as of this encounter Plan of Treatment Not on file documented as of this encounter Procedures Procedure Name Priority Date/Time Associated Diagnosis Comments CHRONIC HEPATITIS PROFILE, UNKNOWN TYPE Routine 01/31/2022 7:13 EDT documented in this encounter Results * CHRONIC HEPATITIS PROFILE, UNKNOWN TYPE (01/31/2022 7:13 EDT) Hep B Surface Ag Negative Negative 02/02/20 10:[address] [facility] Hep B Surface Ab, Quantitative <3.1 See Note mIU/mL 02/01/2022 10:[address] [facility] Comment: Reference Range for Hep B Surface Ab, Quant: Positive: >= 10.0 mIU/mL Negative: ??< 10.0 mIU/mL Patient is presumed to not be immune to infection with Hepatitis B Virus. Hep B Surface Ab, Qualitative Negative See Note 02/01/2022 10:[address] [facility] Comment: Reference Range for Hep B Surface Ab, Qual: Unvaccinated: ??Negative Vaccinated: ??Positive Hepatitis B Core Ab, Total Negative Negative 02/01/2022 10:[address] [facility] Hep C Antibody Negative Negative 02/01/2022 10:[address] [facility] Blood VENOUS BLOOD / Unknown 01/31/2022 7:13 EDT 01/31/2022 17:06 EDT Provider Outr Resulting Lab CHEMISTRY & BLOOD GAS ORDERABLES Performing Organization Address City/State/[facility] Co de Phone Number [facility] [address] [place] [address] documented in this encounter Visit Diagnoses Not on filedocumented in this encounter Care Teams Grinder Operator External Tool Relationship Specialty Start Date End Date Unknown, Provider, PCP - General 11/26/10 documented as of this encounter
--- OUTSIDE RECORDS SUMMARY | 2024-01-15 19:15 | XMS_ITS | Encounter Summary ---
Author Organization [facility] Address [address] [place] [address] Care Team Providers Care Billboard Poster Helper Name Role Phone Unknown, Provider Primary Care Provider Encounter Details Date Type Department Care Team (Late st Contact Info) Description 03/31/2021 Lab Requisition [facility] Pathology & Laboratory Medicine - [address] [address] Outr Resulting Lab, Provider Social History Tobacco [...] Procedure Name Priority Date/Time Associated Diagnosis Comments ZZCOVID-19 TEST [facility] PCR Today 03/30/2021 18:00 EST COVID-19 TESTING Routine 03/30/2021 18:0 0 EST documented in this encounter Results * COVID-19 TEST [facility] PCR (03/30/2021 18:00 EST) Swab 03/30/2021 18:0 0 EST 04/01/2021 18:00 EST Provider Outr Resulting Lab MICROBIOLOGY - GENERAL ORDERABLES [facility] [address] [place] [address] * COVID-19 TESTING (03/30/2021 18:00 EST) COVID-19 rt-PCR Result Negative Negative 04/02/2021 9:49 EST [facility] Comment: This test has not been FDA cleared or approved. This test has been authorized by FDA under an EUA for use by authorized laboratories. This test has been authorized only for detection of nucleic acid from 2019-nCoV, not for any other viruses or pathogens. This test is only authorized for the duration of the declaration that circumstances exist justifying the authorization of emergency use of in vitro diagnostic tests for detection and/or diagnosis of 2019-nCoV under section 564(b)(1) of Act, 21 U.S.C ?? 360bbb-3(b) (1), unless the authorization is terminated or revoked sooner. Negative results do not preclude 2019-nCoV infection and should not be used as the sole basis for treatment or other patient management decisions. Negative results must be combined with clinical observations, patient history, and epidemiological information. Testing was performed using the genaro SARS-CoV-2 assay ([employer] on the Genaro 6800 System Performing Lab Genaro 6800 [facility] 04/02/2021 9:49 EST [facility] Swab 03/30/2021 18:0 0 EST 04/01/2021 18:00 EST Provider Outr Resulting Lab MICROBIOLOGY - GENERAL ORDERABLES [facility] [address] [place] [address] documented in this encounter Visit Diagnoses Not on filedocumented in this encounter Care Teams Billboard Poster Helper Relationship Specialty Start Date End Date Unknown, Provider, PCP - General 11/26/10 documented as of this encounter
--- OUTSIDE RECORDS SUMMARY | 2024-01-15 19:15 | XMS_ITS | Encounter Summary ---
Author Organization [facility] Address [address] [place] [address] Care Team Providers Care Maintenance Repairman Name Role Phone Unknown, Provider Primary Care Provider Encounter Details Date Type Department Care Team (Late st Contact Info) Description 12/20/2021 Lab Requisition [facility] Pathology & Laboratory Medicine - [facility] [address] [place], [place] [address] Naz Kelly NP [address] [place] [id number] Encounter for other general examination Social History Tobacco Use Types Packs/Day Years Used Date Smoking Tobacco: Never Assessed Sex and Gender Information Value Date Recorded Sex Assigned at Not on file Gender Identity Not on file Sexual Orientation Not on file documented as of this encounter Plan of Treatment Not on file documented as of this encounter Procedures Procedure Name Priority Date/Time Associated Diagnosis Comments PAP TEST Today 12/14/2021 7:15 EDT Encounter for other general examination HPV DNA DETECTION WITH GENOTYPING, PCR Today 12/14/2021 7:15 EDT Encounter for other general examination documented in this encounter Results * HUMAN PAPILLOMAVIRUS (HPV) DETECTION-HIGH RISK TYPES (12/14/2021 7:15 EDT) HPV other High Risk types, PCR Negative Negative 12/25/2021 16:06 EDT [facility] Comment:No E6 or E7 mRNA is detected from HPV types 16,18,31,33,35,39,45,51,52,56,58,59,66, and 68 by patient registrar mediated amplification. Papanicolaou smear specimen (specimen) CERVIX UTERI STRUCTURE / Unknown 12/14/2021 7:15 EDT 12/24/2021 14:15 EDT Naz Kelly NP MICROBIOLOGY - GENER AL ORDERABLES Performing Organization Address City/State/[facility] Co de Phone Number [facility] [address] [place] [address] * PAP TEST (12/14/2021 7:15 EDT) Specimens A. Cervix and/or Endocervix , ThinPrep Imaging System with Manual Evaluation 12/25/2021 16:06 EDT [facility] Specimen Adequacy Satisfactory for Evaluation - transformation zone component present Scant squamous epithelial component, contamination present, possibly lubricant 12/25/2021 16:06 EDT [facility] General Categorization Negative for intraepithelial lesion or malignancy 12/25/2021 16:06 EDT [facility] Attestation . 12/25/2021 16:06 T [facility] at 1606 Clinical History See below 12/26/19 16:06 EDT [facility] HPV The result for the Human Papillomavirus (HPV) Detection-High Risk Types is Negative. No E6 or E7 mRNA is detected from HPV types 16,18,31,33,35,39 ,45,51,52,56,58,5 9,66, and 68 by patient registrar mediated amplification.Keke ting was performed on specimen [id number] and was resulted on 12/25/2021 1603 EDT by FE[facility], LAB INSTRUMENT RESULTS IN 12/25/2021 16:06 EDT [facility] Performing Lab [facility] 12/25/2021 16:06 T [facility] Scanned Images 12/25/2021 16:06 EDT [facility] Papanicolaou smear specimen (specimen) CERVIX UTERI STRUCTURE / Unknown 12/14/2021 7:15 EDT 12/20/2021 8:07 EDT Naz Kelly NP PATHOLOGY ORDERABLES [facility] [address] [place] [address] documented in this encounter Visit Diagnoses Diagnosis Encounter for other general examination documented in this encounter Care Teams Maintenance Repairman Relationship Specialty Start Date End Date Unknown, Provider, PCP - General 11/26/10 documented as of this encounter
--- OUTSIDE RECORDS SUMMARY | 2024-01-15 19:15 | XMS_ITS | Clinical Summary ---
Author Organization [facility] Address [address] [place] [address] Care Team Providers Care Dance Studio Manager Name Role Phone Unknown, Provider Primary Care Provider [phone] Social History Tobacco Use Types Packs/Day Years Used Date Smoking Tobacco: Never Assessed Sex and Gender Information Value Date Recorded Sex Assigned at Not on file Gender Identity Not on file Sexual Orientation Not on file Plan of Treatment Health Maintenance Due Date Last Done Comments Hepatitis C Screen 1960 RSV Immunization ( o r 60+ Years) (1 - 1-dose 60+ series) 2022 COVID-19 Vaccine (2022-24 season) 2022 Care Teams Dance Studio Manager Relationship Specialty Start Date End Date Unknown, Provider, PCP - General 11/26/10
--- OUTSIDE RECORDS SUMMARY | 2024-01-15 19:15 | XMS_ITS | Encounter Summary ---
Author Organization [facility] Address [address] [place] [address] Care Team Providers Care Service Tester Name Role Phone Unknown, Provider Primary Care Provider [phone] Encounter Details Date Type Department Care Team (Late st Contact Info) Description 11/23/2010 Results Only [facility] Laboratory Services - [facility] [address] [place] [address] Fatoumata Castro, [facility] [address] [place] [address] [place] [address] Social History Tobacco Use Types Packs/Day Years Used Date Smoking Tobacco: Never Assessed Sex and Gender Information Value Date Recorded Sex Assigned at Not on file Gender Identity Not on file Sexual Orientation Not on file documented as of this encounter Plan of Treatment Not on file documented as of this encounter Procedures Procedure Name Priority Date/Time Associated Diagnosis Comments PAP TEST- RESULT ONLY Routine 11/23/2010 0:00 EDT documented in this encounter Results * PAP TEST- RESULT ONLY (11/23/2010 0:00 EDT) Pathology Report: CYTOPATHOLOGY REPORT ? Reports generated via electronic interface contain original data; ? however they are lacking the format of the original report. ? Caution should be taken when reading/interpreti ng unformatted reports. ? Name: ? MUNA RODRIGUEZ ? Accession #: ? [id number] ? : ? 1960 (Age: 50) ??F ?Collect Date: ? 11/23/2010 ? Location: ? [facility] ? Receive Date: ? 11/26/2010 ? Provider: ?FATOUMATA KIYA SPECIAL EDUCATION KINDERGARTEN TEACHER ? Copy to: ? Specimen/Source: ?Pap Test, Cervix/Endocervix, ThinPrep Imaging System ? with manual evaluation ? Last Menstrual Period: ? 08/03/11 ? Hormonal/Contracep tive Status: ? Oral contraceptives ? SPECIMEN ADEQUACY ? Satisfactory for Evaluation ? - transformation zone component absent ? GENERAL CATEGORIZATION ? Negative for Intraepithelial Lesion or Malignancy ? Document reviewed and electronically signed by: ? Maritza Verville,CT(ASCP) ? Report Date: ??11/30/2010 09:40 ? End of Report ? EDU[facility] LILLY 11/23/2010 11/26/2010 Fatoumata Castro SPECIAL EDUCATION KINDERGARTEN TEACHER PATHOLOGY ORDERABLES Performing Organization Address City/State/[facility] Co de Phone Number [facility] [address] [place] [address] documented in this encounter Visit Diagnoses Not on filedocumented in this encounter Care Teams Service Tester Relationship Specialty Start Date End Date Unknown, Provider, PCP - General 11/26/10 documented as of this encounter
--- OUTSIDE RECORDS SUMMARY | 2024-01-15 19:15 | XMS_ITS | Encounter Summary ---
Author Organization [facility] Address [address] [place] [address] Care Team Providers Care White Kid Buffer Name Role Phone Unknown, Provider Primary Care Provider [phone] Encounter Details Date Type Department Care Team (Late st Contact Info) Description 04/12/2016 Results Only [facility] [phone] Geri Monroe NP [address] [address] Social History Tobacco Use Types Packs/Day Years [...] Diagnosis Comments PAP TEST- RESULT ONLY Routine 04/12/2016 0:00 EST documented in this encounter Results * PAP TEST- RESULT ONLY (04/12/2016 0:00 EST) Pathology Report: CYTOPATHOLOGY REPORT Reports generated via electronic interface contain original data; however they are lacking the format of the original report. Caution should be taken when reading/interpreti ng unformatted reports. Name: ? MUNA RODRIGUEZ ? Accession #: ? [id number] ? : ? 1960 (Age: 56) ??F ?Collect Date: ? 04/12/2016 ? Location: ? [facility] ? Receive Date: ? 04/15/2016 ? Provider: GERI MONROE NP Copy to: ? Final Report SPECIMEN ADEQUACY ? Satisfactory for Evaluation - transformation zone component absent GENERAL CATEGORIZATION ? Negative for Intraepithelial Lesion or Malignancy ?? Last Menstrual Period: a year ago Hormonal/Contracep tive status: None Other: Hydraulic Barker Operator Clinical/Treatment Hx - None Specimen/Source: ??Pap Test, Cervix, ThinPrep Imaging System with manual evaluation Document reviewed and electronically signed by: ? ALETHA Lopez(ASCP) ? Report ??Date: 04/18/2016 12:47 HPV with Pap Test ? Date Ordered: ? 04/18/2016 ? Status: ?? Signed Out ?Date Complete: ? 04/22/2016 ? By: ??System Interface ? Date Reported: ? 04/22/2016 ? Interpretation RESULT: Negative for HPV. No E6 or E7 mRNA is detected from HPV types 16,18,31,33,35, 39,45,51,52,56,58, 59,66, and 68 by director of rehabilitative services mediated amplification. Comments Document reviewed and electronically signed by: ? System Interface ? Report date: 04/22/2016 By the signature above, the attending physician certifies that he/she has personally conducted a gross and/or microscopic examination of the described specimens and rendered or confirmed the above diagnosis. End of Report [facility] 04/12/2016 04/15/2016 Geri Monroe NP PATHOLOGY ORDERABLES [facility] [address] [place] [address] documented in this encounter Visit Diagnoses Not on filedocumented in this encounter Care Teams White Kid Buffer Relationship Specialty Start Date End Date Unknown, Provider, PCP - General 11/26/10 documented as of this encounter
--- OUTSIDE RECORDS SUMMARY | 2024-01-15 19:15 | XMS_ITS | Referral Summary ---
Author Organization [facility] Address [address] [place] [address] Care Team Providers Care Party Supply Specialist Name Role Phone Unknown, Provider Primary Care Provider [phone] Social History Tobacco Use Types Packs/Day Years Used Date Smoking Tobacco: Never Assessed Sex and Gender Information Value Date Recorded Sex Assigned at Not on file Gender Identity Not on file Sexual Orientation Not on file Plan of Treatment Not on file Care Teams Party Supply Specialist Relationship Specialty Start Date End Date Unknown, Provider, PCP - General 11/26/10
--- NOTE | 2024-01-15 19:49 | DI.RAD_ITS ---
Exam(s) XR CHEST 2V PA LATERAL EXAM: XR CHEST 2V PA LATERAL CLINICAL HISTORY: R05.9 cough, unspecified TECHNIQUE: 2D digital imaging was performed of the chest. Two images were obtained. PA and lateral views were obtained. COMPARISON: CR XR PORTABLE CHEST AP from 10/30/2020 FINDINGS: MEDIASTINUM: Normal. HEART: Normal. PULMONARY VASCULATURE: Normal. LUNGS: Clear. PLEURAL SPACE: No pleural effusion or pneumothorax. BONE:Within normal limits for the patient's age. OTHER FINDINGS:Normal. IMPRESSION: No acute pulmonary findings. DATA REPOSITORY: RADIATION DOSE DELIVERED:
--- NOTE | 2024-01-15 20:31 | DI.VRAD_ITS ---
PROCEDURE INFORMATION: Exam: XR Chest Exam date and time: 01/15/2024 7:46 PM Age: 63 years old Clinical indication: Cough TECHNIQUE: Imaging protocol: Radiologic exam of the chest. Views: 2 views. COMPARISON: CR XR PORTABLE CHEST AP 10/30/2020 9:25 AM FINDINGS: Lungs: Unremarkable. No consolidation. Pleural spaces: Unremarkable. No pleural effusion. No pneumothorax. Heart/Mediastinum: Unremarkable. No cardiomegaly. Bones/joints: Unremarkable. IMPRESSION: No acute findings. Dictated and Authenticated by: Radha Landry MD. Ordering:GARCÍA Valero MD
== END 2024-01-15 19:33 ==
PROVIDERS: PCP Nurse Practitioner Family; Visit Provider Physician Assistant Medical
DX: R05.9 Cough, unspecified (principal)
CPT/HCPCS: 71046

== ENCOUNTER 2024-03-11 00:08 | Emergency (ER) | payer OTHER, BC, SELFPAY ==
[2024-03-11 00:17] VITALS: BP 187/115; PULSE 99; RESP 18; TEMP 36.3; O2SAT 99
--- NOTE | 2024-03-11 00:30 | DI.RAD_ITS ---
Exam(s) XR FOOT RT COMPLETE EXAM: XR FOOT RT COMPLETE CLINICAL HISTORY: pain in midfoot/navicular area, ?stress fx v ossic. TECHNIQUE: 2D digital imaging was performed. COMPARISON: No exams were available for comparison FINDINGS: 3 views No evidence of acute fracture nor diastasis of the Cherrie cherelle joint. There is hallux valgus. Also mild degenerative change in the great toe metatarsophalangeal joint. M oderate size inferior calcaneal spur noted. No osseous lesions nor erosions. A degenerative subarti cular cyst is noted in the distal navicular bone. IMPRESSION: Hallux valgus. No fractures. 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 DATA REPOSITORY: RADIATION DOSE DELIVERED:
--- NOTE | 2024-03-11 01:07 | ED.GENADUL_ITS ---
Discharge Plan Disposition Patient Disposition: Home Condition: Stable Discharge Details Clinical Impression: Sprain of deltoid ligament of right ankle, initial encounter Primary Care Provider: Naz Kelly ED Provider: Damion Barraza Home Meds and New Rx's Prescriptions: New naproxen [EC-Naprosyn] 375 mg tablet,delayed release (DR/EC) 375 mg PO BID Qty: 20 0RF No Action hydrochlorothiazide 25 mg tablet 25 mg PO DAILY Qty: 90 3RF lisinopril 40 mg tablet 40 mg PO DAILY Qty: 90 3RF rosuvastatin 10 mg tablet 10 mg PO DAILY Qty: 90 3RF Discharge Instructions Instructions: Foot Sprain ED Additional Instructions: You appear to have a strain or sprain of your navicular segment of your right deltoid ligament in your ankle. You should use some form of increased compression for your right ankle over the next few days. I would recommend using either an Elder wrap or a premade white elastic wrap that can go around your ankle with a heel cut out. When not walking, you should keep your foot elevated and apply cold compresses intermittently to the area of discomfort to improve pain and decrease inflammation. You should consider using crutches to be nonweightbearing on the foot to limit the ongoing stress and injury to the liga ment. You should take 1 Naprosyn tablet every 12 hours, with a small snack, for the next 10 days. This medication is an anti-inflammatory which should decrease inflammation in the ligament over time and improve your pain and exercise tolerance. Follow-up with regular primary care doctor for recheck and further management, especially if symptoms are not significantly improving or resolving with this care plan. You should consider referral to podiatry if symptoms are ongoing. You can always return to the ER for any new concerns or sudden changes in your health which you feel require emergency medical attention. HPI General Date/Time Provider Initiated Documentation: 03/11/24 00:23 . HPI Narrative: The patient is a 63-year-old female, with a noncontributory past medical history, who presents to the emergency department this evening complaining of approximately 1 week of medial right foot pain. The patient reports that the pain begins at the top medial aspect of her foot and radiates down the medial side of her foot into her right great toe. The patient reports that every time she tries to walk she has discomfort at that spot. The patient denies having any significant traumatic injury which she thinks was contributory to acutely causing her symptoms. 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 She thinks that this increased amount of activity of being on her feet has caused her to develop the symptoms. Related Data Home Medications ?Medication ?Instructions ?Recorded ?Confirmed hydrochlorothiazide 25 mg tablet 25 mg PO DAILY #90 tabs 12/16/22 03/11/24 lisinopril 40 mg tablet 40 mg PO DAILY #90 tabs 12/16/22 03/11/24 rosuvastatin 10 mg tablet 10 mg PO DAILY #90 tabs 12/16/22 03/11/24 naproxen 375 mg tablet,delayed 375 mg PO BID #20 tabs 03/11/24 release (EC-Naprosyn) Previous Rx's ?Medication ?Instructions ?Recorded hydrochlorothiazide 25 mg tablet 25 mg PO DAILY #90 tabs 12/16/22 lisinopril 40 mg tablet 40 mg PO DAILY #90 tabs 12/16/22 rosuvastatin 10 mg tablet 10 mg PO DAILY #90 tabs 12/16/22 naproxen 375 mg tablet,delayed 375 mg PO BID #20 tabs 03/11/24 release (EC-Naprosyn) Allergies Allergy/AdvReac Type Severity Reaction Status Date / Time amlodipine AdvReac Mild Peripheral Verified 03/11/24 00:23 edema General Stated Complaint: Orthopedic KASH: 4 Exam Extrem General: full ROM, no joint enlargement, no clubbing, cyanosis or edema, clubbing, cyanosis, edema, not dysmorphic and limp Left lower extremity: foot Details: tenderness Location: of the medial foot (Navicular segment of the deltoid ligament) Location: proximally and tendon exam Course Vital Signs Vital signs: Vital Signs Temperature 36.3 C L 03/11/24 00:17 Pulse 99 H 03/11/24 00:17 Respiratory Rate 18 03/11/24 00:17 Blood Pressure 187/115 H 03/11/24 00:17 Pulse Oximetry 99 03/11/24 00:17 Temperature 36.3 C L 03/11/24 00:17 Temperature Source Oral 03/11/24 00:17 Pulse 99 H 03/11/24 00:17 Respiratory Rate 18 03/11/24 00:17 Respiratory Effort Normal 03/11/24 00:20 Blood Pressure 187/115 H 03/11/24 00:17 Blood Pressure Position Sitting 03/11/24 00:17 Pulse Oximetry 99 03/11/24 00:17 Oxygen Delivery Method Room Air 03/11/24 00:17 Oxygen Flow Rate 0 03/11/24 00:17 Pain Level 8 03/11/24 00:20 Comment increased pain with palpation and walking 03/11/24 00:17 Medical Decision Making The patient was seen and examined. She has no pain to palpation of the plantar fascia. The patient has no pain to manipulation of the cuboid or navicular bones. The patient has a very focal point tenderness when I push on the navicular component of her deltoid ligament. There is no obvious swelling or ecchymosis in this area. She did have an x-ray to exclude an obvious navicular stress fracture or navicular ossicle which might be causing her to have pain. This seems like a overuse or strain injury of the perifocal ligament. Will recommend that the patient use some form of compressive wrap to provide some increased support. I recommend that she uses crutches to be nonweightbearing on the foot. I will recommend RICE and anti-inflammatory medications as a bridge to primary care follow-up for ongoing management and referral to podiatry if symptoms not improving with this conservative care plan. Quality:SDOH Health Related Social Needs: No Data to Display PFSH All Active Problems (Updated 03/11/24 @ 01:14 by Damion Barraza MD) Sprain of deltoid ligament of right ankle, initial encounter (Acute) Severe obstructive sleep apnea (Chronic) PSG 02/19. Didn't tolerate CPAP BATES (nonalcoholic steatohepatitis) (Chronic) Essential hypertension (Chronic) Hyperlipidemia (Chronic) Obesity (BMI 30-39.9) (Chronic) Elevated alkaline phosphatase level (Chronic) GGT elevated. Mild fatty liver and no gallbladder pathology on US 2021 Medical History Depressive disorder Surgical History History of bilateral ligation of fallopian tubes (08/28/88) History of section (03/25/86) 03/25/86, 08/28/88 Status post left foot surgery (01/21/18) Endoscopic plantar fasciotomy of left foot Family History Mother , at 76 of lung cancer Lung cancer Thyroid disease Father , at 69 of brain tumor Brain tumor Sister Thyroid disease Brother Epilepsy Brother No problems noted. Daughter No problems noted. Daughter Epilepsy Maternal Grandfather No problems noted. Maternal Grandmother No problems noted. Paternal Grandfather No problems noted. Paternal Grandmother No problems noted. Social History Smoking/Tobacco Use Status: Never Second Hand Exposure: Yes Smoking risk assessment performed?: Yes Alcohol Intake: current Alcohol Intake frequency: a few times a week Alcohol type: wine and hard liquor Drug use: Never Substance use type: does not use Caregiver/Support person: No Household members: significant other Housing: house Communication Needs: None Do you need help understanding health information?: Never Pets and animals: Yes Pets and animals: dog(s) Sexually active: Yes Do you think of yourself as: straight/heterosexual Current gender identity: female What is your relationship status?: living with partner How often do you talk on the phone with friends or family?: twice per week How often do you get together with friends or relatives?: decline to answer Do you belong to any clubs or organized social groups?: yes Panel score (0-1 are the most socially isolated patients): 2 What type of physical activity do you participate in: none Giuliana/Gnosticism: Shinto Special giuliana needs: No Seatbelt use: always Drive intox or ride w/intox explosives truck driver: No Do you feel safe at home: Yes Do you feel safe in your relationship?: Yes Victim of physical abuse: No Victim of emotional abuse: No Victim of sexual abuse: No Would you like helpful sources: No Female Reproductive History Menstrual Menopause type: natural History History 2 Para 2 Hx # Term Pregnancies Multiple births Hx # Pregnancies Ectopic pregnancies AB induced Hx Number of Living Children 2 AB spontaneous
[2024-03-11 01:28] VITALS: BP 155/98; PULSE 86; RESP 16; O2SAT 99
[2024-03-11 01:29] VITALS: BP 155/98
--- NOTE | 2024-03-11 02:20 | DI.VRAD_ITS ---
PROCEDURE INFORMATION: Exam: XR Right Foot Exam date and time: 03/11/2024 1:00 AM Age: 63 years old Clinical indication: Pain; Foot; Right; Additional info: Pain in midfoot/navicular area, ? stress FX v ossic TECHNIQUE: Imaging protocol: Radiologic exam of the right foot. Views: 3 or more views. COMPARISON: No relevant prior studies available. FINDINGS: Bones/joints: Hallux valgus deformity. No fracture or suspicious osseous lesion. Soft tissues: Normal. IMPRESSION: 1. Hallux valgus deformity. 2. No acute findings. Dictated and Authenticated by: Tong Lockwood MD. Ordering:LUPILLO Bruno MD
== END 2024-03-11 01:29 | disposition home or self-care (01) ==
LOC: ER 01:55
PROVIDERS: Emergency Provider Emergency Medicine Emergency Medical Services; PCP Nurse Practitioner Family
DX: S93.421A Sprain of deltoid ligament of right ankle, initial encounter (principal); X58.XXXA Exposure to other specified factors, initial encounter
CPT/HCPCS: 99283; 73630

== ENCOUNTER 2024-04-07 03:32 | Outpatient (CLI) | payer BC, SELFPAY ==
--- NOTE | 2024-04-07 06:45 | DI.MAMMO_ITS ---
Exam(s) MAMMO SCREENING EXAM: MAMMO SCREENING CLINICAL HISTORY: screening,Z12.39 TECHNIQUE: Bilateral full field digital CC and MLO mammographic images were obtained with 3D tomosyn thesis and utilizing computer aided detection (CAD). COMPARISON: Available for comparison. FINDINGS: Masses/Architectural Distortion: There is a new 3 mm nodule in the outer right breast on the cranioca udad view. No areas of architectural distortion are present. Microcalcifications: No suspicious pleomorphic-type are seen. Skin Thickening/Nipple Retraction: None. IMPRESSION: 1. New 3 mm nodule in the outer right breast on the craniocaudad view. 2. Spot compression views requested for further evaluation. Limited right breast ultrasound may be i ndicated at that time. BI-RADS Category 0 - Incomplete: Need additional imaging evaluation Breast Density - Category B - Scattered areas of fibroglandular density Breast density category C or D implies that the patient has dense breast tissue. Dense breast tissue is very common and is not abnormal but dense breast tissue can make it harder to find cancer on a ma mmogram. Also, dense breast tissue may increase their breast cancer risk. This information about the result of the mammogram report was provided to the patient to raise their awareness. Use this report when you speak with the patient about their risks for breast cancer, which includes their family hist ory. At that time, you may recommend for more screening tests (Ultrasound or MRI) as they might be us eful based on their risk. A negative radiographic report should not delay biopsy if a dominant or clinically suspicious mass is present. Up to ten percent of cancers are not identified on mammography. A negative report may reinforce clinical impression. Adenosis and dense breasts may obscure an underlying neoplasm. False positive reports average 6 to 10%. Patient will receive a letter notifying them of these results.
--- NOTE | 2024-04-07 08:30 | DI.US_ITS ---
APPROVED REPORT EXAM: Comprehensive 2D, Doppler, and color-flow Echocardiogram Patient Location: Out-Patient Senior Category Manager: Yvette Gamez RDCS (AE) Indications: Systolic murmur in elderly, no echo baseline Other Information Study Quality: Adequate Conclusion Normal left ventricular wall thickness and chamber size. Ejection fraction is 60%. Wall motion is n ormal Normal right ventricular size and function Both atria are normal in size There are no structural valvular abnormalities Mild mitral regurgitation Estimated right ventricular systolic pressure is 22 mmHg Ascending aorta measures 3.54 cm Wall motion Left Ventricle The left ventricle is normal size. The left ventricular systolic function is normal. The left ventric ular ejection fraction is within the normal range. There is normal left ventricular wall thickness. T here is normal LV segmental wall motion. There is no ventricular septal defect visualized. LVEF is 60 %. Right Ventricle The right ventricle is normal size. The right ventricular systolic function is normal. Atria The left atrium size is normal. The right atrium size is normal. The interatrial septum is intact wit h no evidence for an atrial septal defect. Aortic Valve The aortic valve is normal in structure. Aortic valve is trileaflet. There is no aortic valvular sten osis. No aortic regurgitation is present. Mitral Valve The mitral valve is normal in structure. No evidence of mitral valve stenosis. Mild mitral regurgita tion. Tricuspid Valve The tricuspid valve is normal in structure. There is no tricuspid valve stenosis. Trace tricuspid reg urgitation. The RVSP is 22.0_ mmHg. Pulmonic Valve The pulmonary valve is normal in structure. There is no pulmonic valvular stenosis. There is no pulmo db valvular regurgitation. Great Vessels The aortic root is normal in size. The ascending aorta is mildly dilated. Aortic arch is normal in ca liber. IVC is normal in size and collapses >50% with inspiration. Pericardium There is no pericardial effusion. 2D Dimensions IVSD d PLAX 0.80 cm F: 0.6-1.0 Ao Root d 2.95 cm F: 2.7 - 3.3 LVPW d PLAX 0.85 cm F: 0.6 - 1.0 Ao Asc Diam d 3.54 cm F: 2.3 - 3.1 LVID d PLAX 4.23 cm F: 3.8 - 5.2 LVDs 2.89 cm F: 2.2 - 3.5 LV EF Teichholz 60.0 % FS 31.63 % LV EDV (Teich) 80.0 mL LV ESV (Teich) 32.0 mL M-Mode TAPSE 2.60 cm (M/F) >1.7 Auto EF LV EDV A4C 92.7 mL LV EDV A2C 101.5 mL LV EDV BP 99.5 mL LV ESV A4C 38.5 mL LV ESV A2C 39.7 mL LV ESV BP 39.7 mL LVEF(%) A4C 58.5 % LVEF(%) A2C 60.9 % LVEF(%) BP 60.1 % LV SV A4C 54.2 ml LV SV A2C 61.8 ml LV SV BP 59.8 ml LV CO A4C 3.8 L/min LV CO A2C 4.0 L/min LV CO BP 3.9 L/min HR A4C 70.87 BPM HR A2C 64.99 BPM LV EDV Index (BP) LA Volume LA Length A4C 5.7 cm LA Length A2C 5.3 cm LA Area A4C s 22.08 cm2 LA Area A2C s 19.72 cm2 LA Vol A4C A-L 72.10 mL LA Vol A2C A-L 62.28 mL LA Vol Biplane A-L 69.7 mL LA Vol/BSA A4C A-L LA Vol/BSA A2C A-L LA Vol/BSA BP A-L 35.8 mL/m2 LA Vol A4C MOD 69.6 mL LA Vol A2C MOD 59.3 mL LA Vol BP MOD 66.7 mL RA Volume RA Area A4C 11.9 cm2 RA ESV A4C (A-L) 26.9mL RA Vol/BSA A4C A-L RA Length A4C 4.4 cm RA ESV A4C (MOD) 24.2mL LV Diastology MV E' medial 0.092 (>0.07 m/s) MV E Vmax 1.01 (0.4-1.3 m/s) MV E/E' MED 10.95 (<14) MV A Vmax 0.95 (0.4-1.3 m/s) MV E' lateral 0.082 (>0.1 m/s) E/A Ratio 1.1 MV E/E' LAT 12.39 (<14) MV E' Average 0.087 m/s MV E/E'(average) 11.63 Aortic Valve AoV Vmax 1.42 m/s LVOT Vmax 1.13 m/s AoV Peak Grad 8.0 mmHg LVOT Peak Grad 5.1 mmHg AoV Area (Vmax) 2.61 cm2 LVOT VTI 0.268 m AoV VTI 0.333 m LVOT Mean Grad 3.0 mmHg AoV Mean Omar. 0.95 m/s LVOT SV 87.97 mL AoV Mean Grad 4.2 mmHg LVOT Diam s 2.00 cm AoV Area (VTI) 2.64 cm2 AV Regurg Peak Gr. 8.02 mmHg Velocity Ratio 0.80 Mitral Valve MV DT 217 (160-240 msec) MV Vmax TIPS 1.07 m/s MV Mean Grad 2.0 (<2mmHg) MV VTI 0.277 m Pulmonary Valve PV Vmax 0.98 (0.5-1.5 m/s) PV Peak Grad 3.9 mmHg PV Mean Omar 0.71 m/s PV Mean Grad 2.3 mmHg Tricuspid Valve RA Pressure 3.00 mmHg TR Vmax 2.18 m/s TV S' 0.14 m/s TR Peak Grad 19.0 mmHg RVSP (TR) 22.0 mmHg
== END 2024-04-07 03:52 ==
LOC: DI 03:32
PROVIDERS: PCP Nurse Practitioner Family; Visit Provider Nurse Practitioner Family
DX: R01.1 Cardiac murmur, unspecified (principal); Z12.31 Encounter for screening mammogram for malignant neoplasm of breast; R92.323 Mammographic fibroglandular density, bilateral breasts
CPT/HCPCS: 77063; 77067; 93306

== ENCOUNTER 2024-04-08 10:42 | Outpatient (CLI) | payer BC, SELFPAY ==
--- NOTE | 2024-04-08 09:25 | DI.MAMMO_ITS ---
Exam(s) MG MAMMO SCREEN CALL BACK UNI US BREAST RT LIMITED EXAM: MG MAMMO SCREEN CALL BACK UNI and U/S breast RT limited CLINICAL HISTORY: 3 mm nodule in outer rt breast on CC view, R92.8. TECHNIQUE: Craniocaudal and mediolateral oblique Full Field Digital Mammography views of the right b reast with Computer Aided Diagnosis followed by Tomosynthesis and limited right breast ultrasound. COMPARISON: Comparison is made with prior examinations. FINDINGS: Mammography/Tomosynthesis: Masses/Architectural Distortion: The area of concern in the outer right breast does not persist on th e additional views. No suspicious masses or areas of architectural distortion are seen. Microcalcifictions: No suspicious pleomorphic-type are seen. Skin Thickening/Nipple Retraction: None. Limited right breast US: Echotexture: Normal appearance of the glandular tissue. Shadowing: No suspicious foci. Cyst: None. Solid lesions: Sonographically benign-appearing lymph node is seen at the 10 o'clock position of the right breast 4 cm from the nipple. No suspicious solid masses are seen. Ductal dilation: None. IMPRESSION: 1. No evidence of malignancy is noted. 2. Unless there is more urgent need, follow-up screening mammography is recommended, as per [place] [employer] guidelines. 3. The findings were discussed with the patient on the date of the examination. BI-RADS Category 1 - Negative Breast Density - Category B - Scattered areas of fibroglandular density Breast density Category C or D implies that the patient has dense breast tissue. Dense breast tissue can make it harder to find cancer on a mammogram. Dense breast tissue is also associated with an incr eased risk of breast cancer. This information about the result of the mammogram report was provided to the patient to raise their awareness. Use this report when you speak with the patient about their risks for breast cancer, which includes their family history. At that time, you may recommend additional screening tests (Ultrasoun d or MRI) as these tests may add significant information. A negative radiographic report should not delay biopsy if a dominant or clinically suspicious mass is present. Up to ten percent of cancers are not identified on mammography. A negative report may reinforce clinical impression. Adenosis and dense breasts may obscure an underlying neoplasm. False positive reports average 6 to 10%. Patient will receive a letter notifying them of these results.
== END 2024-04-08 11:02 ==
LOC: DI 10:43
PROVIDERS: PCP Nurse Practitioner Family; Visit Provider Nurse Practitioner Family
DX: Z12.31 Encounter for screening mammogram for malignant neoplasm of breast (principal); R92.8 Other abnormal and inconclusive findings on diagnostic imaging of breast; R92.323 Mammographic fibroglandular density, bilateral breasts
CPT/HCPCS: 76642; 77063; 77067

== ENCOUNTER 2024-04-19 01:35 | Outpatient (CLI) | payer OTHER, SELFPAY ==
--- NOTE | 2024-04-19 06:30 | DI.RAD_ITS ---
Exam(s) XR ANKLE RT COMPLETE EXAM: XR ANKLE RT COMPLETE CLINICAL HISTORY: pain medial malleolus,rt ankle sprain,s93.401a. TECHNIQUE: 2D digital imaging was performed. COMPARISON: No exams were available for comparison FINDINGS: 3 views No evidence of acute fracture nor widening the ankle mortise. Talar dome unremarkable. Bone density normal. No osseous lesions. No osteochondral defects evident. No obvious degenerative changes. M oderate size inferior calcaneal spur is noted. IMPRESSION: No acute osseous findings in the right ankle. DATA REPOSITORY: RADIATION DOSE DELIVERED:
== END 2024-04-19 01:55 ==
PROVIDERS: PCP Nurse Practitioner Family; Visit Provider Nurse Practitioner Family
DX: S93.401A Sprain of unspecified ligament of right ankle, initial encounter (principal); X58.XXXA Exposure to other specified factors, initial encounter
CPT/HCPCS: 73610

== ENCOUNTER 2024-05-21 00:43 | Outpatient (CLI) | payer BC, SELFPAY ==
[2024-05-21 07:13] LABS: HCT 35.5 % (36.0-46.0); HGB 11.7 g/dL (11.2-15.7); MCH 29.7 pg (27.0-33.0); MCV 90 fL (80-95); MPV 10.7 fL (8.0-11.0); Platelet Count 210 10^3/uL (130-400); RBC 3.94 10^6/uL (3.93-5.22); RDW 12.8 % (11.7-14.6); RDW-SD 42.5 fL; WBC 4.42 10^3/uL (4.4-10.8)
[2024-05-21 07:48] LABS: ALT 42 U/L (14-59); AST 25 U/L (15-37); Albumin 3.8 g/dL (3.4-5.0); Alkaline Phosphatase 130 U/L (46-116); Anion Gap 7.9 mmol/L (3-11); BUN 20 mg/dL (7-18); Bilirubin, Total 0.31 mg/dL (0.2-1.0); CO2 32.1 mmol/L (21.0-32.0); Calcium 9.2 mg/dL (8.5-10.1); Chloride 104 mmol/L (98-107); Glucose 109 mg/dL (74-106); Potassium 3.9 mmol/L (3.5-5.1); Sodium 144 mmol/L (136-145); Total Protein 7.4 g/dL (6.4-8.2)
== END 2024-05-21 00:44 | disposition home or self-care (01) ==
LOC: LBO 00:43
PROVIDERS: PCP Nurse Practitioner Family; Visit Provider Nurse Practitioner Family
DX: K76.0 Fatty (change of) liver, not elsewhere classified (principal); K75.81 Nonalcoholic steatohepatitis (NASH)
CPT/HCPCS: 36415; 80053; 85027